=== PATIENT | female | born 1990 | race Caucasian/White ===

== ENCOUNTER → 2016-03-10 | Outpatient (CLI) | payer MEDICAID ==
[2016-03-10 12:49] LABS: Basophils % (A) 0 %; CH 29.2; Eosinophils # (A) 0.2 k/uL (0-0.7); Eosinophils % (A) 2 %; HCT 40.7 % (34.0-46.0); HDW 2.63; HGB 13.4 gm/dL (11.4-16.0); Luc # (Auto) 0.18; Luc % (Auto) 2; Lymphocytes # (A) 2.1 k/uL (1.0-4.8); Lymphocytes % (A) 23 %; MCH 28.4 pg (25.0-35.0); MCHC 32.9 g/dL (31.0-37.0); MCV 86.3 fL (80.0-100.0); Monocytes # (A) 0.3 k/uL (0-1.0); Monocytes % (A) 4 %; Neutrophils # (A) 6.3 k/uL (1.3-7.7); Neutrophils % (A) 69 %; RBC 4.71 m/uL (3.80-5.40); RDW 12.7 % (11.5-15.5); WBC 9.2 k/uL (3.8-10.6); WBC (Perox) 9.36
[2016-03-10 13:02] LABS: ALT 38 U/L (9-52); AST 18 U/L (14-36); Alkaline Phosphatase 94 U/L (38-126); Anion Gap 13 mmol/L; Blood Urea Nitrogen 8 mg/dL (7-17); Calcium 9.5 mg/dL (8.4-10.2); Carbon Dioxide 21 mmol/L (22-30); Chloride 107 mmol/L (98-107); Cholesterol 213 mg/dL (<200); Glucose 91 mg/dL (74-99); HDL Cholesterol 83 mg/dL (40-60); Non-African American GFR(MDRD) >60 (>60 ml/min/1.73 sqM); Potassium 4.5 mmol/L (3.5-5.1); Sodium 141 mmol/L (137-145); Total Bilirubin 0.4 mg/dL (0.2-1.3); Total Protein 7.3 g/dL (6.3-8.2); Triglycerides 131 mg/dL (<150)
[2016-03-10 14:05] LABS: Vitamin B12 >1000 pg/mL (239-931)
[2016-03-10 19:58] LABS: Hemoglobin A1C 5.2 % (4.2-6.1)
== END | disposition home or self-care (01) ==
LOC: LABMAIN 12:03
PROVIDERS: ATTEND Family Medicine
DX: E04.2 Nontoxic multinodular goiter (principal); E03.9 Hypothyroidism, unspecified; R73.01 Impaired fasting glucose; F90.0 Attention-deficit hyperactivity disorder, predominantly inattentive type
CPT/HCPCS: 36415; 80053; 80061; 82607; 83036; 84439; 84443; 85025

== ENCOUNTER → 2016-03-13 | Outpatient (CLI) | payer MEDICAID ==
--- NOTE | 2016-03-13 07:44 | US ---
EXAMINATION TYPE: US thyroid st tissue head/neck DATE OF EXAM: 03/13/2016 7:26 AM COMPARISON: March 22, 2015 CLINICAL HISTORY: E04.2 GOITER. Follow up thyroid nodules GLAND SIZE: Right Lobe: 4.7 x 1.6 x 1.8 cm Overall Parenchyma: heterogenous Left Lobe: 4.5 x 1.6 x 1.6 cm Overall Parenchyma: heterogeneous Isthmus Thickness: 0.4 cm NODULES RIGHT: # of nodules measured on right: 1 1. 1.0 X 0.5 x 0.7 cm hypoechoic solid nodule at the medial mid pole with well-defined margins; . This nodule is wider than tall and shows intranodular vascularity. Prior size: 0.9 x 0.5 x 0.9 cm LEFT: # of nodules measured on left: 1 1. 1.5 X 0.5 x 1.0 cm hypoechoic solid nodule at the mid pole with well-defined margins; . This no dule is wider than tall and shows intranodular vascularity. Prior size: 1.6 x 0.4 x 0.8 cm ISTHMUS: # of nodules measured in the isthmus: 1 1. 0.6 X 0.4 x 0.8 cm hypoechoic solid nodule at the mid pole with well-defined margins; . This no dule is wider than tall and shows intranodular vascularity. Prior size: 0.9 x 0.5 x 0.9 cm IMPRESSION: Heterogenous thyroid gland, nodules noted with little to no change from prior exam. Hyp oechoic areas noted inferior to bilateral thyroid glands, possible lymph nodes
== END | disposition home or self-care (01) ==
LOC: RADUSWWP 07:08
PROVIDERS: ATTEND Family Medicine
DX: E04.2 Nontoxic multinodular goiter (principal)
CPT/HCPCS: 76536

== ENCOUNTER 2016-10-25 10:15 | Day surgery (SDC) | payer MEDICAID ==
[2016-10-23 11:29] VITALS: BMI 34.5
[~2016-10-25 10:15] MED LIST: LACTATED RINGERS 1,000 ML IV SCH
[2016-10-25 10:58] VITALS: RESP 16; TEMP 98.9
[2016-10-25] MEDS ORDERED: PROPOFOL 10 MG/ML 20 ML VIAL IV ONE (11:07)
--- NOTE | 2016-10-25 11:15 | P.PCN ---
Date of Procedure: 10/25/16 Procedure(s) Performed: BRIEF HISTORY: Patient is a 26-year-old, pleasant, white female, scheduled for an upper endoscopy as a part of evaluation of chronic persistent nausea for the last several months duration. She also has GERD and has been on Prilosec 20 mg daily for 6 months. PROCEDURE PERFORMED: Esophagogastroduodenoscopy with biopsy. PREOPERATIVE DIAGNOSIS: GERD/chronic persistent nausea. IV sedation per anesthesia. PROCEDURE: After informed consent was obtained, the patient was brought into the endoscopy unit. IV sedation was administered by Anesthesia under continuous monitoring. Initially the Olympus GIF-140 video endoscope was inserted into the mouth. Esophagus intubated without any difficulty. It was gradually advanced into the stomach and duodenum and carefully examined. The bulb and the second part of the duodenum appeared normal. The scope at this time was withdrawn to the stomach, adequately insufflated with air, and upon careful examination, mucosa of the antrum, had mild gastritis and biopsies were done from this area. The body, cardia and the fundus appeared normal. The scope was then withdrawn into the esophagus. The GE junction was located at 40 cm from the incisors. The esophagus appeared normal. Biopsies were done from the distal esophagus. There were no erosions or ulcerations seen and the patient tolerated the procedure well. IMPRESSION: 1. Mild antral gastritis. 2. No evidence of esophagitis or peptic ulcer disease. RECOMMENDATIONS: The findings of this examination were discussed with the patient as well as a family. She was advised to continue with Prilosec 20 mg daily and follow antireflux measures. She will follow with the biopsy results.
[2016-10-25 11:39] VITALS: BP 123/88; PULSE 81
== END 2016-10-25 11:53 | disposition home or self-care (01) ==
LOC: ORWHC2ENDO 10:15
PROVIDERS: ATTEND Internal Medicine Gastroenterology
DX: K21.0 Gastro-esophageal reflux disease with esophagitis (principal); K29.50 Unspecified chronic gastritis without bleeding; Z79.899 Other long term (current) drug therapy; Z91.040 Latex allergy status; F39 Unspecified mood [affective] disorder; E07.9 Disorder of thyroid, unspecified
CPT/HCPCS: 81025; 88305; 88342; 43239; J2704

== ENCOUNTER → 2017-03-13 | Outpatient (CLI) | payer MEDICAID ==
[2017-03-13 08:59] LABS: Basophils # (A) 0.1 k/uL (0-0.2); Basophils % (A) 1 %; Eosinophils # (A) 0.2 k/uL (0-0.7); Eosinophils % (A) 2 %; HCT 40.3 % (34.0-46.0); HGB 13.1 gm/dL (11.4-16.0); Lymphocytes # (A) 2.8 k/uL (1.0-4.8); Lymphocytes % (A) 29 %; MCH 28.4 pg (25.0-35.0); MCHC 32.6 g/dL (31.0-37.0); MCV 87.3 fL (80.0-100.0); Mean Platelet Volume 6.6; Monocytes # (A) 0.3 k/uL (0-1.0); Monocytes % (A) 3 %; Neutrophils # (A) 6.3 k/uL (1.3-7.7); Neutrophils % (A) 64 %; Platelet Count 351 k/uL (150-450); RBC 4.61 m/uL (3.80-5.40); RDW 12.9 % (11.5-15.5); WBC 9.9 k/uL (3.8-10.6)
[2017-03-13 09:17] LABS: ALT 32 U/L (9-52); AST 16 U/L (14-36); Alkaline Phosphatase 80 U/L (38-126); Anion Gap 10 mmol/L; Blood Urea Nitrogen 10 mg/dL (7-17); Calcium 9.5 mg/dL (8.4-10.2); Carbon Dioxide 27 mmol/L (22-30); Chloride 103 mmol/L (98-107); Cholesterol 201 mg/dL (<200); Glucose 106 mg/dL (74-99); HDL Cholesterol 68 mg/dL (40-60); LDL Cholesterol,Calculated 95 mg/dL (0-99); Potassium 4.1 mmol/L (3.5-5.1); Sodium 140 mmol/L (137-145); Total Bilirubin 0.3 mg/dL (0.2-1.3); Triglycerides 189 mg/dL (<150)
[2017-03-13 09:34] LABS: T4, Free (Free Thyroxine) 0.76 ng/dL (0.78-2.19)
== END | disposition home or self-care (01) ==
LOC: LABWHC1 08:30
PROVIDERS: ATTEND Family Medicine
DX: Z01.419 Encounter for gynecological examination (general) (routine) without abnormal findings (principal); F90.0 Attention-deficit hyperactivity disorder, predominantly inattentive type; K83.9 Disease of biliary tract, unspecified; E03.9 Hypothyroidism, unspecified; Z13.220 Encounter for screening for lipoid disorders
CPT/HCPCS: 36415; 80053; 80061; 82607; 84439; 84443; 85025

== ENCOUNTER → 2017-06-11 | Outpatient (CLI) | payer MEDICAID ==
[2017-06-11 09:05] LABS: Basophils % (A) 0 %; Eosinophils # (A) 0.2 k/uL (0-0.7); Eosinophils % (A) 3 %; HCT 40.8 % (34.0-46.0); HGB 13.1 gm/dL (11.4-16.0); Lymphocytes # (A) 2.7 k/uL (1.0-4.8); Lymphocytes % (A) 33 %; MCH 27.7 pg (25.0-35.0); MCHC 32.1 g/dL (31.0-37.0); MCV 86.1 fL (80.0-100.0); Mean Platelet Volume 7.2; Monocytes # (A) 0.4 k/uL (0-1.0); Monocytes % (A) 4 %; Neutrophils # (A) 4.7 k/uL (1.3-7.7); Neutrophils % (A) 58 %; Platelet Count 336 k/uL (150-450); RBC 4.74 m/uL (3.80-5.40); RDW 13.1 % (11.5-15.5); WBC 8.2 k/uL (3.8-10.6)
[2017-06-11 09:20] LABS: ALT 26 U/L (9-52); AST 16 U/L (14-36); Albumin 3.9 g/dL (3.5-5.0); Alkaline Phosphatase 83 U/L (38-126); Anion Gap 12 mmol/L; Blood Urea Nitrogen 8 mg/dL (7-17); Calcium 9.4 mg/dL (8.4-10.2); Carbon Dioxide 26 mmol/L (22-30); Chloride 105 mmol/L (98-107); Glucose 105 mg/dL (74-99); Potassium 4.6 mmol/L (3.5-5.1); Sodium 143 mmol/L (137-145); Total Bilirubin 0.3 mg/dL (0.2-1.3); Total Protein 6.8 g/dL (6.3-8.2); Triglycerides 78 mg/dL (<150)
[2017-06-11 09:34] LABS: T4, Free (Free Thyroxine) 1.19 ng/dL (0.78-2.19)
[2017-06-11 19:28] LABS: Hemoglobin A1C 5.2 % (4.0-6.0)
== END | disposition home or self-care (01) ==
LOC: LABWHC1 08:33
PROVIDERS: ATTEND Family Medicine
DX: E78.1 Pure hyperglyceridemia (principal); E03.9 Hypothyroidism, unspecified; R73.01 Impaired fasting glucose; R19.7 Diarrhea, unspecified; F90.0 Attention-deficit hyperactivity disorder, predominantly inattentive type
CPT/HCPCS: 36415; 80053; 83036; 84439; 84443; 84478; 84480; 85025

== ENCOUNTER → 2017-11-02 | Outpatient (CLI) | payer MEDICAID ==
--- NOTE | 2017-11-04 12:43 | US ---
EXAMINATION TYPE: US thyroid st tissue head/neck DATE OF EXAM: 11/02/2017 COMPARISON: NONE CLINICAL HISTORY: E04.1 Thyroid nodule. GLAND SIZE: Right Lobe: 5.2 x 1.5 x 1.8 cm Overall Parenchyma: Diffusely heterogeneous Left Lobe: 4.3 x 1.4 x 1.6 cm Overall Parenchyma: Diffusely heterogeneous Isthmus Thickness: 0.5 cm NODULES RIGHT: # of nodules measured on right: 0 LEFT: # of nodules measured on left: 0 ISTHMUS: # of nodules measured in the isthmus: 0 Diffusely heterogeneous lobes bilaterally. Within the right neck, inferior to the thyroid, there is a hypoechoic area visualized measuring 1.3 x 0.6 x 0.9 cm. There is some vascularity visualized. Withi n the left neck, inferior to the thyroid, measuring 1.2 x 1.0 x 0.9 cm, possible lymph node. IMPRESSION: 1. Thyromegaly without discrete nodules. Thyroid lobes are heterogenous. 2. Right neck adenopathy.
== END | disposition home or self-care (01) ==
LOC: RADUSWWP 15:37
PROVIDERS: ATTEND Family Medicine
DX: E01.0 Iodine-deficiency related diffuse (endemic) goiter (principal); R59.0 Localized enlarged lymph nodes
CPT/HCPCS: 76536

== ENCOUNTER → 2018-01-07 | Outpatient (CLI) | payer MEDICAID ==
[2018-01-07 12:54] LABS: Basophils % (A) 0 %; Eosinophils # (A) 0.2 k/uL (0-0.7); Eosinophils % (A) 2 %; HGB 13.1 gm/dL (11.4-16.0); Lymphocytes # (A) 1.9 k/uL (1.0-4.8); Lymphocytes % (A) 24 %; MCH 28.8 pg (25.0-35.0); MCHC 32.8 g/dL (31.0-37.0); MCV 87.8 fL (80.0-100.0); Mean Platelet Volume 6.6; Monocytes # (A) 0.3 k/uL (0-1.0); Monocytes % (A) 3 %; Neutrophils # (A) 5.4 k/uL (1.3-7.7); Neutrophils % (A) 69 %; Platelet Count 330 k/uL (150-450); RBC 4.56 m/uL (3.80-5.40); RDW 12.7 % (11.5-15.5); WBC 7.8 k/uL (3.8-10.6)
[2018-01-07 19:09] LABS: Albumin 4.3 g/dL (3.80-4.90); Albumin/Globulin Ratio 2.05 (1.20-2.10); Anion Gap 6.6 mmol/L (4.00-12.00); Calcium 9.2 mg/dL (8.7-10.3); Carbon Dioxide 25.4 mmol/L (21.6-31.8); Globulin 2.1 g/dL (2.1-3.7); Potassium 4.3 mmol/L (3.5-5.5); Total Bilirubin 0.3 mg/dL (0.2-1.2); Total Protein 6.4 g/dL (6.2-8.2)
[2018-01-07 19:17] LABS: HCG,Quantitative Serum 201.3 mIU/mL; T4, Free (Free Thyroxine) 1.2 ng/dL (0.80-1.80)
[2018-01-07 19:53] LABS: HIV 1 AB Non-Reactive (Non-Reactive); HIV AB P24 Non-Reactive (Non-Reactive); HIV P24 AG Non-Reactive (Non-Reactive)
[2018-01-07 23:36] LABS: Hemoglobin A1C 5.2 % (4.0-6.0)
== END | disposition home or self-care (01) ==
LOC: LABWHC1 12:01
PROVIDERS: ATTEND Family Medicine
DX: O00.01 Abdominal pregnancy with intrauterine pregnancy (principal); E03.9 Hypothyroidism, unspecified
CPT/HCPCS: 36415; 80053; 83036; 84439; 84443; 84702; 85025; 86735; 86762; 86765; 86900; 86901; 87086; 87340; 87390

== ENCOUNTER → 2018-02-08 | Outpatient (CLI) | payer MEDICAID | END | disposition home or self-care (01) | LOC: LABWHC1 09:01 | PROVIDERS: ATTEND Obstetrics & Gynecology Obstetrics | DX: O20.0 Threatened abortion (principal) | CPT/HCPCS: 36415; 84702 ==

== ENCOUNTER → 2018-02-13 | Outpatient (CLI) | payer MEDICAID ==
[2018-02-13 09:53] LABS: Basophils % (A) 0 %; Eosinophils # (A) 0.2 k/uL (0-0.7); Eosinophils % (A) 3 %; HCT 38.6 % (34.0-46.0); HGB 12.8 gm/dL (11.4-16.0); Lymphocytes # (A) 2.5 k/uL (1.0-4.8); Lymphocytes % (A) 35 %; MCH 29.2 pg (25.0-35.0); MCV 88.3 fL (80.0-100.0); Monocytes # (A) 0.3 k/uL (0-1.0); Monocytes % (A) 4 %; Neutrophils % (A) 56 %; Platelet Count 289 k/uL (150-450); RBC 4.37 m/uL (3.80-5.40); RDW 13.1 % (11.5-15.5); WBC 7.1 k/uL (3.8-10.6)
== END | disposition home or self-care (01) ==
LOC: LABWHC1 08:31
PROVIDERS: ATTEND Obstetrics & Gynecology Obstetrics
DX: Z01.812 Encounter for preprocedural laboratory examination (principal); O02.0 Blighted ovum and nonhydatidiform mole; O08.9 Unspecified complication following an ectopic and molar pregnancy
CPT/HCPCS: 36415; 85025

== ENCOUNTER 2018-02-14 11:26 | Day surgery (SDC) | payer MEDICAID ==
[2018-02-13 09:07] VITALS: BMI 36.0
[~2018-02-14 11:26] MED LIST changes: +DEXAMETHASONE SOD PHOSPHATE 10 MG/ML 1 ML VIAL IV ONE; +HYDROmorphone 0.5 MG/0.5 ML SYRINGE IVP PRN; +LIDOCAINE 1% 20 ML VIAL (10MG/ML) FOR IV START INTRADERMA PRN; +ONDANSETRON 4 MG/2 ML VIAL IVP ONE; +SCOPOLAMINE 1.5MG/72HR PATCH TRANSDERM ONE
[2018-02-14] MEDS ORDERED: LACTATED RINGERS 1,000 ML IV ONE ×2 (11:56→14:11)
[2018-02-14] MEDS ORDERED: SUCCINYLCHOLINE CHLORIDE 100 MG/5 ML SYR IV ONE (12:55)
[2018-02-14] MEDS ORDERED: LIDOCAINE 1% INJ 10MG/ML (20 ML MDV) ONE (12:55)
[2018-02-14] MEDS ORDERED: PROPOFOL 10 MG/ML 20 ML VIAL IV ONE (12:55)
[2018-02-14] MEDS ORDERED: KETOROLAC 30 MG/ML 1 ML VIAL ONE (12:55)
[2018-02-14] MEDS ORDERED: fentaNYL (PF) 50 MCG/ML 2 ML AMP ONE (12:55)
[2018-02-14] MEDS ORDERED: MIDAZOLAM 2 MG/2 ML VIAL ONE (12:55)
--- NOTE | 2018-02-14 13:15 | P.OP ---
Date of Procedure: 02/14/18 Preoperative Diagnosis: Blighted ovum Postoperative Diagnosis: Same Procedure(s) Performed: Suction D&C Anesthesia: GETA Surgeon: Kamryn Garcia Estimated Blood Loss (ml): 5 IV fluids (ml): 400 Urine output (ml): 100 Pathology: other (Uterine contents) Condition: stable Disposition: PACU Indications for Procedure: Blighted ovum Operative Findings: Moderate amount of products of conception Description of Procedure: Patient was seen in the preoperative area and procedure was reviewed once again with her QUESTIONS were answered. Patient was taken to the operating suite where general anesthesia was obtained without difficulty by the anesthesia department. She was then prepped and draped in normal sterile fashion in the dorsal lithotomy position a weighted speculum posterior vaginal vault D'Corky the cervix incision was grasped with single-tooth tenaculum prior to this a latex free catheter was used to drain the bladder of approximately 100 mL of clear yellow urine. The cervix was then dilated to 18-Kinyarwanda and a 8 mm curved suction curet was placed through the cervix and toward the uterine cavity once the pressure was in the green the uterus is evacuated of products of conception. Afterwards gentle curettage was performed and a gritty texture was noted. Patient tolerated procedure well all counts were correct 2 she was taken the recovery room awake and in stable condition.
[2018-02-14 13:27] VITALS: TEMP 97.2
[2018-02-14 14:19] VITALS: RESP 16
[2018-02-14 14:48] VITALS: BP 111/73; PULSE 79
== END 2018-02-14 14:56 | disposition home or self-care (01) ==
LOC: OR 11:26
PROVIDERS: ATTEND Obstetrics & Gynecology Obstetrics
DX: O02.0 Blighted ovum and nonhydatidiform mole (principal); K21.9 Gastro-esophageal reflux disease without esophagitis; E04.9 Nontoxic goiter, unspecified; E03.9 Hypothyroidism, unspecified; Z79.890 Hormone replacement therapy; Z79.899 Other long term (current) drug therapy; Z91.040 Latex allergy status
CPT/HCPCS: 86900; 86901; 88305; 86850; 59820; J2250; J1100; J2405; J2001; J3010; J1885; J0330; J2704

== ENCOUNTER → 2018-05-21 | Outpatient (CLI) | payer MEDICAID | LOC: LABWHC1 06:29 | PROVIDERS: ATTEND Obstetrics & Gynecology Obstetrics | DX: O20.0 Threatened abortion (principal) | CPT/HCPCS: 36415; 84702 ==

== ENCOUNTER → 2018-06-18 | Outpatient (CLI) | payer MEDICAID | END | disposition home or self-care (01) | LOC: LABWHC1 13:57 | PROVIDERS: ATTEND Obstetrics & Gynecology Obstetrics | DX: Z34.90 Encounter for supervision of normal pregnancy, unspecified, unspecified trimester (principal) | CPT/HCPCS: 36415; 84144; 84702 ==

== ENCOUNTER → 2018-06-18 | Outpatient (CLI) | payer MEDICAID ==
[2018-06-18 17:35] LABS: HCT 37.2 % (34.0-46.0); HGB 12.1 gm/dL (11.4-16.0); MCH 28.4 pg (25.0-35.0); MCHC 32.5 g/dL (31.0-37.0); MCV 87.2 fL (80.0-100.0); Platelet Count 319 k/uL (150-450); RBC 4.27 m/uL (3.80-5.40); RDW 13.1 % (11.5-15.5); WBC 10.5 k/uL (3.8-10.6)
== END | disposition home or self-care (01) ==
LOC: LABWHC1 17:10
PROVIDERS: ATTEND Obstetrics & Gynecology Obstetrics
DX: O00.109 Unspecified tubal pregnancy without intrauterine pregnancy (principal); Z3A.00 Weeks of gestation of pregnancy not specified
CPT/HCPCS: 36415; 82565; 84450; 84520; 85027

== ENCOUNTER → 2018-06-18 | Outpatient (CLI) | payer MEDICAID ==
[~2018-06-18] MED LIST changes: -DEXAMETHASONE SOD PHOSPHATE 10 MG/ML 1 ML VIAL IV ONE; -HYDROmorphone 0.5 MG/0.5 ML SYRINGE IVP PRN; -LACTATED RINGERS 1,000 ML IV SCH; -LIDOCAINE 1% 20 ML VIAL (10MG/ML) FOR IV START INTRADERMA PRN; +METHOTREXATE SODIUM (PF) 25 MG/ML 2 ML VIAL IM ONE; -ONDANSETRON 4 MG/2 ML VIAL IVP ONE; -SCOPOLAMINE 1.5MG/72HR PATCH TRANSDERM ONE
[2018-06-18 17:43] VITALS: BP 145/89; PULSE 99; RESP 16
== END | disposition home or self-care (01) ==
LOC: PEDOP 17:22
PROVIDERS: ATTEND Obstetrics & Gynecology Obstetrics
DX: O00.90 Unspecified ectopic pregnancy without intrauterine pregnancy (principal); Z3A.00 Weeks of gestation of pregnancy not specified
CPT/HCPCS: 96372; J9260

== ENCOUNTER → 2018-06-21 | Outpatient (CLI) | payer MEDICAID | LOC: LABWHC1 06:32 | PROVIDERS: ATTEND Obstetrics & Gynecology Obstetrics | DX: O00.109 Unspecified tubal pregnancy without intrauterine pregnancy (principal); Z3A.00 Weeks of gestation of pregnancy not specified | CPT/HCPCS: 36415; 84702 ==

== ENCOUNTER → 2018-06-24 | Outpatient (CLI) | payer MEDICAID ==
[2018-06-24 08:38] LABS: HCT 38.7 % (34.0-46.0); HGB 12.5 gm/dL (11.4-16.0); MCH 28.3 pg (25.0-35.0); MCHC 32.2 g/dL (31.0-37.0); MCV 87.9 fL (80.0-100.0); Mean Platelet Volume 6.8; Platelet Count 319 k/uL (150-450); RBC 4.41 m/uL (3.80-5.40); RDW 13.5 % (11.5-15.5); WBC 7.6 k/uL (3.8-10.6)
[2018-06-24 08:57] LABS: AST 17 U/L (14-36); Blood Urea Nitrogen 6 mg/dL (7-17)
[2018-06-24 09:14] LABS: HCG,Quantitative Serum 12609.4 mIU/mL
== END | disposition home or self-care (01) ==
LOC: LABWHC1 07:49
PROVIDERS: ATTEND Obstetrics & Gynecology Obstetrics
DX: O00.109 Unspecified tubal pregnancy without intrauterine pregnancy (principal)
CPT/HCPCS: 36415; 82565; 84450; 84520; 84702; 85027

== ENCOUNTER → 2018-07-02 | Outpatient (CLI) | payer MEDICAID | END | disposition home or self-care (01) | LOC: LABWHC1 06:31 | PROVIDERS: ATTEND Obstetrics & Gynecology Obstetrics | DX: O00.109 Unspecified tubal pregnancy without intrauterine pregnancy (principal) | CPT/HCPCS: 36415; 84702 ==

== ENCOUNTER → 2018-07-09 | Outpatient (CLI) | payer MEDICAID | END | disposition home or self-care (01) | LOC: LABWHC1 08:32 | PROVIDERS: ATTEND Obstetrics & Gynecology Obstetrics | DX: O00.90 Unspecified ectopic pregnancy without intrauterine pregnancy (principal); Z3A.00 Weeks of gestation of pregnancy not specified | CPT/HCPCS: 36415; 84702 ==

== ENCOUNTER → 2018-07-15 | Outpatient (CLI) | payer MEDICAID | END | disposition home or self-care (01) | LOC: LABWHC1 14:24 | PROVIDERS: ATTEND Obstetrics & Gynecology Obstetrics | DX: O00.109 Unspecified tubal pregnancy without intrauterine pregnancy (principal) | CPT/HCPCS: 36415; 84702 ==

== ENCOUNTER → 2018-07-29 | Outpatient (CLI) | payer MEDICAID | END | disposition home or self-care (01) | LOC: LABWHC1 08:03 | PROVIDERS: ATTEND Obstetrics & Gynecology Obstetrics | DX: O00.109 Unspecified tubal pregnancy without intrauterine pregnancy (principal); Z3A.00 Weeks of gestation of pregnancy not specified | CPT/HCPCS: 36415; 84702 ==

== ENCOUNTER → 2018-08-12 | Outpatient (CLI) | payer MEDICAID | END | disposition home or self-care (01) | LOC: LABWHC1 07:59 | PROVIDERS: ATTEND Obstetrics & Gynecology Obstetrics | DX: O00.109 Unspecified tubal pregnancy without intrauterine pregnancy (principal); Z3A.00 Weeks of gestation of pregnancy not specified | CPT/HCPCS: 36415; 84702 ==

== ENCOUNTER → 2018-08-26 | Outpatient (CLI) | payer MEDICAID | END | disposition home or self-care (01) | LOC: LABWHC1 09:07 | PROVIDERS: ATTEND Obstetrics & Gynecology Obstetrics | DX: O00.109 Unspecified tubal pregnancy without intrauterine pregnancy (principal) | CPT/HCPCS: 36415; 84702 ==

== ENCOUNTER → 2018-10-04 | Outpatient (CLI) | payer MEDICAID ==
--- NOTE | 2018-10-04 18:19 | FL ---
EXAMINATION TYPE: FL hysterosalpingography DATE OF EXAM: 10/04/2018 Comparison: None Clinical History: 28-year-old female N96 Hx of miscarriage and prior left-sided ectopic treated medic ally. Total fluoroscopy time: 34 seconds. Total images: 13. Findings: Real Estate Sales Associate image demonstrates no abnormality. No other foreign bodies are seen within the pelvis. The patient was consented and utilizing standard sterile technique, the cervical os was cannulated. F ollowing the injection of approximately 5 mL Isovue-300 contrast material, there is prompt filling of the uterine cavity. Uterus has normal morphology. Contrast is seen progressing to the proximal fallopian tubes. Subsequent passage of contrast across t he fallopian tubes and spillage first from the left fallopian tube followed by the right fallopian tu be. The balloon was deflated and contrast was allowed to fill the entire uterine cavity. No uterine anoma ly is identified. Impression: Normal morphology of the uterine cavity with patent bilateral fallopian tubes. Spillage was first see n on the left.
== END | disposition home or self-care (01) ==
LOC: RADUSWWP 13:18
PROVIDERS: ATTEND Obstetrics & Gynecology Obstetrics
DX: N96 Recurrent pregnancy loss (principal)
CPT/HCPCS: 58340; 74740; Q9967

== ENCOUNTER → 2018-10-14 | Outpatient (CLI) | payer MEDICAID ==
--- NOTE | 2018-10-14 13:00 | US ---
EXAMINATION TYPE: US thyroid st tissue head/neck DATE OF EXAM: 10/14/2018 COMPARISON: Thyroid ultrasound November 02, 2017 CLINICAL HISTORY: E04.2 NONTOXIC MULTINODULAR GOITER. Patient is on thyroid meds. GLAND SIZE: And older studies Right Lobe: 5.2 x 1.7 x 1.9 cm Overall Parenchyma: heterogenous Left Lobe: 4.6 x 1.7 x 1.8 cm Overall Parenchyma: heterogeneous Isthmus Thickness: 0.8 cm NODULES RIGHT: # of nodules measured on right: 0 LEFT: # of nodules measured on left: 0 ISTHMUS: # of nodules measured in the isthmus: 0 Bilateral neck scanned, multiple lymph nodes seen. Largest measured on each side. Right- inferior t o thyroid lobe = 1.2 x 1.1 x 0.6 cm. Left- inferior to thyroid lobe = 1.6 x 1.2 x 0.9 cm. Bilateral lobes appear hypervascular with no prominent masses or lesions seen. Right lobe appears en larged in size. Markedly heterogeneous normal-sized thyroid redemonstrated without new greater than 1 cm nodules. Sub centimeter suspected benign lymph nodes are incidentally marked bilaterally. IMPRESSION: As above, stable markedly heterogeneous thyroid without new suspicious focal nodules.
== END | disposition home or self-care (01) ==
LOC: RADUSWWP 10:43
PROVIDERS: ATTEND Family Medicine
DX: E04.2 Nontoxic multinodular goiter (principal)
CPT/HCPCS: 76536

== ENCOUNTER → 2018-10-23 | Outpatient (CLI) | payer MEDICAID ==
[2018-10-23 11:25] LABS: Basophils % (A) 1 %; Eosinophils # (A) 0.3 k/uL (0-0.7); Eosinophils % (A) 3 %; HCT 40.7 % (34.0-46.0); HGB 13.6 gm/dL (11.4-16.0); Lymphocytes # (A) 2.5 k/uL (1.0-4.8); Lymphocytes % (A) 28 %; MCH 28.7 pg (25.0-35.0); MCHC 33.5 g/dL (31.0-37.0); MCV 85.7 fL (80.0-100.0); Monocytes # (A) 0.3 k/uL (0-1.0); Monocytes % (A) 4 %; Neutrophils # (A) 5.6 k/uL (1.3-7.7); Neutrophils % (A) 63 %; Platelet Count 334 k/uL (150-450); RBC 4.75 m/uL (3.80-5.40); RDW 13.1 % (11.5-15.5); WBC 8.9 k/uL (3.8-10.6)
[2018-10-23 13:46] LABS: Erythrocyte Sedimentation Rate 18 mm/hr (0-20)
[2018-10-23 16:49] LABS: African American GFR (CKD) 134.7 (60.0-200.0); Albumin 4.6 g/dL (3.80-4.90); Albumin/Globulin Ratio 2.09 (1.60-3.17); Anion Gap 8.3 mmol/L (4.00-12.00); BUN/Creat Ratio 12.86 Ratio (12.00-20.00); C Reactive Protein 1.7 mg/dL (0.0-0.8); Calcium 9.5 mg/dL (8.7-10.3); Carbon Dioxide 26.7 mmol/L (21.6-31.8); Chol/HDL Ratio 3.55; Globulin 2.2 g/dL (1.6-3.3); LDL Cholesterol,Calculated 113.2 mg/dL (0.0-131.0); Potassium 4.1 mmol/L (3.5-5.5); Total Bilirubin 0.4 mg/dL (0.3-1.2); Total Protein 6.8 g/dL (6.2-8.2); VLDL Calculation 16.8 mg/dL (5.00-40.00)
[2018-10-23 16:56] LABS: HCG,Quantitative Serum 5.7 mIU/mL; T4, Free (Free Thyroxine) 1.4 ng/dL (0.80-1.80)
[2018-10-23 17:23] LABS: Procalcitonin 0.02 ng/mL (0.02-0.09)
[2018-10-23 17:31] LABS: Hemoglobin A1C 5.5 % (4.0-6.0)
[2018-10-23 18:17] LABS: Cardiolipin Ab IgG Interp NEGATIVE (NEGATIVE); Cardiolipin Ab IgM Interp NEGATIVE (NEGATIVE); Cardiolipin IgA Antibody <0.5 U/mL; Cardiolipin IgM Antibody 0.9 U/mL; HIV 1 AB Non-Reactive (Non-Reactive); HIV AB P24 Non-Reactive (Non-Reactive); HIV P24 AG Non-Reactive (Non-Reactive)
[2018-10-23 19:25] LABS: EBV-EA (IgG) >8.0 AI; EBV-EBNA(IgG) >8.0 AI; EBV-VCA (IgG) 4.3 AI; EBV-VCA (IgM) <0.2 AI
[2018-10-24 11:55] LABS: APTT 41 Sec(s) (<43); DRVVT 1:1 Mix 44 Sec(s) (<44); Dilute Russell Viper Venom 51 Sec(s) (<44)
[2018-10-24 14:17] LABS: C. trachomatis,PCR Negative (Neg,Equiv); Chlamydia trachomatis Source Urine; N. gonorrhoeae,PCR Negative (Neg,Equiv); Neisseria Source Urine
== END | disposition home or self-care (01) ==
LOC: LABWHC1 09:49
PROVIDERS: ATTEND Family Medicine
DX: O03.9 Complete or unspecified spontaneous abortion without complication (principal); I88.1 Chronic lymphadenitis, except mesenteric; E03.9 Hypothyroidism, unspecified; R73.01 Impaired fasting glucose
CPT/HCPCS: 36415; 80053; 80061; 83036; 84145; 84439; 84443; 84702; 85025; 85613; 85652; 85730; 86038; 86140; 86147; 86308; 86663; 86664; 86665; 87390; 87491; 87591

== ENCOUNTER → 2018-11-02 | Outpatient (CLI) | payer MEDICAID ==
--- NOTE | 2018-11-03 08:09 | CT ---
EXAMINATION TYPE: CT soft tissue neck w con DATE OF EXAM: 11/02/2018 COMPARISON: None HISTORY: Adenitis CT DLP: 504.20 mGycm CONTRAST: Patient injected with 50 mL of Isovue 300. TECHNIQUE: Axial images at 3 mm thick sections. Reconstructed images in the coronal plane and sagitt al plane are reviewed. FINDINGS: Limited CT sections are obtained the lung apices. The lung apices appear clear. CT neck: The torus tubarius and fossa of Rosenmuller are normal. Pulpit Operator spaces are normal. Para nasal sinuses and mastoid air cells are clear. Parotid glands appear normal and symmetrical. Submandibular glands, are normal. Parapharyngeal spac es are normal. No suspicious adenopathy is evident. Few small submental lymph nodes are present. Cou ple small submandibular lymph nodes are present. The largest lymph node is in the left submandibular region measuring 0.7 cm transverse. The hypopharynx appears within normal limits. Vocal cord level appear symmetrical. Thyroid as visualized is normal. Osseous structures are normal. IMPRESSIONS: 1. Normal soft tissue neck CT.
--- NOTE | 2018-11-03 08:14 | CT ---
EXAMINATION TYPE: CT abdomen pelvis w con DATE OF EXAM: 11/02/2018 COMPARISON: None INDICATION: Adenitis DLP: 1932.30 mGycm, Automated exposure control for dose reduction was used. CONTRAST: 50 mL of Isovue 300. Study performed with Oral Contrast TECHNIQUE: Axial images were obtained from above the diaphragm to the pubic rami in the axial plane a t 5 mm thick sections. Reconstructed images are reviewed on the computer in the coronal plane. FINDINGS: Limited CT sections are obtained the lung bases. The lung bases are clear. CT ABDOMEN: Liver: Normal Spleen: Normal Pancreas: Normal Adrenal glands: The adrenal glands are normal. Gallbladder: Normal Kidneys: No masses are evident. No hydronephrosis is present. No cysts are present. Delayed images were obtained through the kidneys, which remain unremarkable. Aorta: Normal Inferior vena cava: Normal. CT PELVIS: Inguinal adenopathy is present bilaterally measuring 1.2 cm on the left 1.1 cm on the righ t. No suspicious iliac chain or obturator canal adenopathy is evident. No suspicious periaortic or re trocaval adenopathy is evident. A few small scattered mesenteric lymph nodes are present. Loops of bowel within the abdomen and pelvis are normal. There are loops of bowel which are incom pletely distended or lack oral contrast limiting their evaluation. Appendix: The appendix is not well visualized. No suspicious inflammatory changes or dilated tubular structures are evident. The right lower quadrant. Urinary bladder: Normal. Genitourinary structures: Uterus is unremarkable. Adnexal regions are clear. No free fluid is within the pelvis Osseous structures: No suspicious lytic or sclerotic lesions. IMPRESSIONS: 1. Couple of prominent inguinal lymph nodes. Suspicious adenopathy is not otherwise identified withi n the abdomen and pelvis. 2. Remainder of the CT abdomen pelvis appears unremarkable as visualized.
== END | disposition home or self-care (01) ==
LOC: RADCTMAIN 08:58
PROVIDERS: ATTEND Family Medicine
DX: I88.1 Chronic lymphadenitis, except mesenteric (principal)
CPT/HCPCS: 70491; 74177; Q9967

== ENCOUNTER → 2018-12-17 | Outpatient (CLI) | payer MEDICAID | END | disposition home or self-care (01) | LOC: LABWHC1 10:32 | PROVIDERS: ATTEND Obstetrics & Gynecology Obstetrics | DX: N92.5 Other specified irregular menstruation (principal) | CPT/HCPCS: 36415; 84144; 84702 ==

== ENCOUNTER → 2018-12-19 | Outpatient (CLI) | payer MEDICAID | END | disposition home or self-care (01) | LOC: LABWHC1 06:31 | PROVIDERS: ATTEND Obstetrics & Gynecology Obstetrics | DX: N92.5 Other specified irregular menstruation (principal) | CPT/HCPCS: 36415; 84702 ==

== ENCOUNTER 2018-12-21 18:12 | Emergency (ER) | payer MEDICAID ==
[2018-12-21 18:19] VITALS: RESP 18; TEMP 98.8
[2018-12-21] MEDS ORDERED: METOCLOPRAMIDE 5 MG/ML 2 ML VIAL IVP STA (18:34)
[2018-12-21] MEDS ORDERED: diphenhydrAMINE 50 MG/ML 1 ML VIAL IVP STA (18:34)
[2018-12-21] MEDS ORDERED: SODIUM CHLORIDE 0.9% 1,000 ML IV ONE (18:34)
--- NOTE | 2018-12-21 18:41 | ED ---
Head Injury HPI - General Chief complaint: Head Injury Stated complaint: head injury/headache Time Seen by Provider: 12/21/18 18:21 Source: patient Mode of arrival: ambulatory Limitations: no limitations - History of Present Illness Initial comments: 28-year-old female patient presents to the emergency department today for evaluation of headache. Patient states that approximately 8-9 days ago she struck the right christianity on her headboard. Patient states the next day she developed a headache to the area. Patient states the pain is radiating down int o her jaw. States that she always has a pressure type pain to the region and then occasionally she'll have periods of more intense pain that radiates to her right periorbital region. She denies any blurred or double vision. States she has been trying Tylenol without relief. States she did see her primary care physician who evaluated her for temporal arteritis but states the lab tests were negative. Patient states that she has been having intense nausea with this. 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 Patient denies any recent rash, fever, chills, shortness breath, chest pain, abdominal pain, diarrhea, constipation, back pain, numbness, tingling, dizziness, weakness, hematuria, dysuria, urinary urgency, urinary frequency, or any other complaints. - Related Data Home Medications Medication Instructions Recorded Confirmed Levothyroxine Sodium 112 mcg PO QAM 02/13/18 02/13/18 Pnv No.95/Ferrous Fum/Folic AC 1 each PO DAILY 02/13/18 02/13/18 [ Multivitamin Tablet] Ranitidine HCl [Zantac] 150 mg PO DAILY PRN 02/13/18 02/13/18 Previous Rx's Medication Instructions Recorded Cyclobenzaprine [Flexeril] 10 mg PO TID #15 tab 12/21/18 Allergies/Adverse reactions: Allergies Allergy/AdvReac Type Severity Reaction Status Date / Time latex Allergy Rash/Hives Verified 02/13/18 08:56 Review of Systems ROS Statement: Those systems with pertinent positive or pertinent negative responses have been documented in the HPI. ROS Other: All systems not noted in ROS Statement are negative. Past Medical History Past Medical History: GERD/Reflux, Thyroid Disorder Additional Past Medical History / Comment(s): gastitis History of Any Multi-Drug Resistant Organisms: None Reported Past Surgical History: No Surgical Hx Reported Additional Past Surgical History / Comment(s): WISDOM TEETH -EXTRACTIONS Past Anesthesia/Blood Transfusion Reactions: No Reported Reaction Past Psychological History: ADD/ADHD, Anxiety Past Alcohol Use History: Occasional - Past Family History Mother Family Medical History: Deep Vein Thrombosis (DVT) General Exam Limitations: no limitations General appearance: alert, in no apparent distress, other (This is a well-developed, well-nourished adult female patient in no acute distress. Vital signs upon presentation are temperature 98.8F, pulse 116, respirations 18, blood pressure 132/60, pulse ox 98% on room air.) Head exam: Present: other (Tenderness over the right temporal region.) Eye exam: Present: normal appearance, PERRL, EOMI. Absent: scleral icterus, conjunctival injection, periorbital swelling ENT exam: Present: normal exam, normal oropharynx, mucous membranes moist, TM's normal bilaterally Respiratory exam: Present: normal lung sounds bilaterally. Absent: respiratory distress, wheezes, rales, rhonchi, stridor Cardiovascular Exam: Present: regular rate, normal rhythm, normal heart sounds. Absent: systolic murmur, diastolic murmur, rubs, gallop, clicks GI/Abdominal exam: Present: soft, normal bowel sounds. Absent: distended, tenderness, guarding, rebound, rigid Neurological exam: Present: alert, oriented X3, CN II-XII intact, other (Strength in all 4 extremities is 5/5.) Psychiatric exam: Present: normal affect, normal mood Skin exam: Present: warm, dry, intact, normal color. Absent: rash Course Vital Signs 12/21/18 12/21/18 18:15 19:46 Temperature 98.8 F Pulse Rate 116 H 84 Respiratory 18 18 Rate Blood Pressure 132/60 116/59 O2 Sat by Pulse 98 99 Oximetry Medical Decision Making - Medical Decision Making 28-year-old female patient presents to the emergency department today for evaluation of right sided headache. Patient did sustain a head injury approximately 8 days ago. Physical examination did reveal tenderness over the right TMJ region. Neurologically patient is intact with no focal deficits. CT brain was obtained and showed no acute abnormalities. Patient was given IV fluids and medication here in the emergency department. She does report mild improvement of symptoms. Note that computed tomography scan is negative we will give Toradol and a muscle relaxer for possible TMJ disorder. I did discuss findings results with the patient. She'll be discharged with this and follow up with her primary care physician for recheck in 1-2 days. Return parameters were discussed in detail. She verbalizes understanding and agrees with this plan. - Radiology Data Radiology results: report reviewed, image reviewed CT brain without contrast was obtained. Report was reviewed in its entirety. Impression by Dr. Miranda shows normal unenhanced head computed tomography scan. Disposition Clinical Impression: Headache, Head injury Disposition: HOME SELF-CARE Condition: Good Instructions (If sedation given, give patient instructions): Temporomandibular Disorder (ED), Acute Headache (ED) Additional Instructions: Take medications as directed. Consider getting a mouth guard. Follow up through primary care physician for recheck in 1-2 days. Return to the emergency department immediately for any new, worsening, or concerning symptoms. Prescriptions: Cyclobenzaprine [Flexeril] 10 mg PO TID #15 tab Is patient prescribed a controlled substance at d/c from ED?: No Referrals: Salena Butterfield MD [Primary Care Provider] - 1-2 days Time of Disposition: 19:31
--- NOTE | 2018-12-21 19:07 | CT ---
EXAMINATION TYPE: CT brain wo con DATE OF EXAM: 12/21/2018 COMPARISON: None HISTORY: Right temporal injury 8 days ago. Pain and pressure since. CT DLP: 1068.4 mGycm. Automated Exposure Control for Dose Reduction was Utilized. TECHNIQUE: CT scan of the head is performed without contrast. FINDINGS: Ventricles have normal size. There is no mass effect nor midline shift. There is no sign of intracranial hemorrhage. The calvarium is intact. IMPRESSION: Normal unenhanced head CT scan.
[2018-12-21] MEDS ORDERED: CYCLOBENZAPRINE 10MG STARTER 3 TAB BTL PO STA (19:16)
[2018-12-21] MEDS ORDERED: KETOROLAC 30 MG/ML 1 ML VIAL IVP STA (19:16)
[2018-12-21 19:47] VITALS: BP 116/59; PULSE 84
== END 2018-12-21 19:54 | disposition home or self-care (01) ==
LOC: EC 18:12
DX: S09.90XA Unspecified injury of head, initial encounter (principal); K29.70 Gastritis, unspecified, without bleeding; Z79.899 Other long term (current) drug therapy; Z91.040 Latex allergy status; W22.03XA Walked into furniture, initial encounter; Y92.009 Unspecified place in unspecified non-institutional (private) residence as the place of occurrence of the external cause
CPT/HCPCS: 70450; 99284; 96374; 96375 ×2; 96361; J1200; J2765; J1885

== ENCOUNTER → 2018-12-23 | Outpatient (CLI) | payer MEDICAID | END | disposition home or self-care (01) | LOC: LABWHC1 11:25 | PROVIDERS: ATTEND Obstetrics & Gynecology Obstetrics | DX: O02.1 Missed abortion (principal) | CPT/HCPCS: 36415; 84702 ==

== ENCOUNTER → 2019-06-07 | Outpatient (CLI) | payer MEDICAID ==
[2019-06-07 07:20] LABS: Basophils # (A) 0.1 k/uL (0-0.2); Basophils % (A) 1 %; Eosinophils # (A) 0.2 k/uL (0-0.7); Eosinophils % (A) 2 %; HCT 41.2 % (34.0-46.0); HGB 13.2 gm/dL (11.4-16.0); Lymphocytes # (A) 1.9 k/uL (1.0-4.8); Lymphocytes % (A) 24 %; MCH 28.9 pg (25.0-35.0); MCV 90.2 fL (80.0-100.0); Mean Platelet Volume 7.5; Monocytes # (A) 0.4 k/uL (0-1.0); Monocytes % (A) 5 %; Neutrophils # (A) 5.4 k/uL (1.3-7.7); Neutrophils % (A) 68 %; Platelet Count 312 k/uL (150-450); RBC 4.56 m/uL (3.80-5.40); RDW 12.8 % (11.5-15.5); WBC 7.9 k/uL (3.8-10.6)
[2019-06-07 10:11] LABS: African American GFR (CKD) 114.7 (60.0-200.0); Albumin 4.4 g/dL (3.80-4.90); Anion Gap 6.5 mmol/L (4.00-12.00); BUN/Creat Ratio 16.25 Ratio (12.00-20.00); Calcium 9.5 mg/dL (8.7-10.3); Carbon Dioxide 25.5 mmol/L (21.6-31.8); Globulin 2.2 g/dL (1.6-3.3); Non-African American GFR(CKD) 98.9 (60.0-200.0); Potassium 4.1 mmol/L (3.5-5.5); Total Bilirubin 0.5 mg/dL (0.2-1.2); Total Protein 6.6 g/dL (6.2-8.2)
[2019-06-07 10:19] LABS: T4, Free (Free Thyroxine) 1.3 ng/dL (0.80-1.80)
== END | disposition home or self-care (01) ==
LOC: LABMAIN 06:52
PROVIDERS: ATTEND Family Medicine
DX: E03.9 Hypothyroidism, unspecified (principal); G43.911 Migraine, unspecified, intractable, with status migrainosus
CPT/HCPCS: 36415; 80053; 82607; 84439; 84443; 85025

== ENCOUNTER → 2019-06-10 | Outpatient (CLI) | payer MEDICAID | END | disposition home or self-care (01) | LOC: LABMAIN 13:51 | PROVIDERS: ATTEND Obstetrics & Gynecology Obstetrics | DX: N92.5 Other specified irregular menstruation (principal) | CPT/HCPCS: 36415; 84144; 84702 ==

== ENCOUNTER → 2019-06-12 | Outpatient (CLI) | payer MEDICAID | END | disposition home or self-care (01) | LOC: LAB 06:27 | PROVIDERS: ATTEND Obstetrics & Gynecology Obstetrics | DX: N92.5 Other specified irregular menstruation (principal) | CPT/HCPCS: 84702 ==

== ENCOUNTER → 2019-11-20 | Outpatient (CLI) | payer MEDICAID ==
[2019-11-20 08:09] LABS: HCT 37.9 % (34.0-46.0); HGB 12.7 gm/dL (11.4-16.0); MCH 31.2 pg (25.0-35.0); MCHC 33.6 g/dL (31.0-37.0); MCV 92.7 fL (80.0-100.0); Mean Platelet Volume 7.3; Platelet Count 240 k/uL (150-450); RBC 4.08 m/uL (3.80-5.40); RDW 12.8 % (11.5-15.5); WBC 9.7 k/uL (3.8-10.6)
== END | disposition home or self-care (01) ==
LOC: LABWHC1 06:40
PROVIDERS: ATTEND Obstetrics & Gynecology Obstetrics
DX: Z36.9 Encounter for antenatal screening, unspecified (principal)
CPT/HCPCS: 36415; 82950; 85027

== ENCOUNTER → 2019-11-28 | Outpatient (CLI) | payer MEDICAID ==
[2019-11-28 11:28] LABS: Glucose 3 Hour, Gest 82 mg/dL
== END | disposition home or self-care (01) ==
LOC: LABWHC1 07:27
PROVIDERS: ATTEND Obstetrics & Gynecology Obstetrics
DX: O99.810 Abnormal glucose complicating pregnancy (principal); Z3A.00 Weeks of gestation of pregnancy not specified
CPT/HCPCS: 36415; 82951; 82952

== ENCOUNTER 2020-02-01 20:14 | Outpatient (CLI) | payer MEDICAID ==
[2020-02-01 21:20] VITALS: BP 131/89; PULSE 88; RESP 16; TEMP 96.5
--- NOTE | 2020-03-23 19:19 | P.MSEPDOC ---
Presenting Problems - Arrival Data Date of Arrival on Unit: 02/01/20 Time of Arrival on Unit: 20:14 Mode of Transport: Ambulatory - Complaint OB-Reason for Admission/Chief Complaint: Decreased Movement Comment: Patient presents with decreased movement, states that she has felt some movement today, but not as often as she normally does. With the last time being approximately 1 hour prior to arrival. Medical History - Information : 4 Para: 0 Term: 0 : 0 Abortions: Spontaneous or Elective: 3 Number of Living Children: 0 - Gestational Age Gestational Age by AIMEE (wks/days): 37 Weeks and 0 Days - History Complications: GDM Review of Systems - Review of Systems Constitutional: No problems Breast: No problems ENT: No problems Cardiovascular: No problems Respiratory: No problems Gastrointestinal: No problems Genitourinary: No problems Musculoskeletal: No problems Neurological: No problems Skin: No problems Vital Signs - Temperature Temperature: 96.5 F Temperature Source: Temporal Artery Scan - Pulse Pulse Oximetery Pulse Rate: 88 Pulse Assessment Method: Automatic Cuff - Respirations Respiratory Rate: 16 Oxygen Delivery Method: Room Air - Blood Pressure Sitting Blood Pressure: 131/89 Blood Pressure Mean: 103 Medical Screen Scoring (Pre) - Cervical Exam Dilation: Exam Deferred Effacement: Exam Deferred Membranes: Intact - Uterine Contractions Frequency: > 5 minutes apart = 1 Duration: > 40 seconds = 2 Intensity: N/A - Maternal Vital Signs Maternal Temperature: N/A Maternal Blood Pressure: Diastolic > 89 = 1 Signs of Preeclampsia: N/A Maternal Respirations: N/A - Maternal Trauma Maternal Trauma: N/A - Assessment - Baby A Baseline FHR: 130 Heart Rate - NICHD Category: Category I (Normal) = 0 NST: Reactive Position: N/A Station: N/A - Total Score - Baby A Total Score - Baby A: 4 - Total Score - Baby B Total Score - Baby B: 4 - Total Score - Baby C Total Score - Baby C: 4 - Level of Risk - Baby A Level of Risk - Baby A: Low (0-5) - Level of Risk - Baby B Level of Risk - Baby B: Low (0-5) - Level of Risk - Baby C Level of Risk - Baby C: Low (0-5) Physician Notification (Pre) - Physician Notified Physician Notified Date: 02/01/20 Physician Notified Time: 20:54 New Order Received: Yes - Notification Comment Comment: Orders given to re-evaluate patient's blood pressure if normal okay to discharge patient home with instructions and patient to keep regularly scheduled appt with Dr. Garcia for Friday 02/02. Repeat blood pressure 117/74. Disposition - Disposition OB Disposition: Discharge to home, Written follow up instructions reviewed Discharge Date: 02/01/20 Discharge Time: 21:05 I agree with the RN Medical Screening Exam: Yes Case reviewed; plan agreed upon as documented in EMR&OBIX.: Yes Diagnosis: decreased movement
== END 2020-02-01 21:05 | disposition home or self-care (01) ==
LOC: FBPOP 20:14
PROVIDERS: ATTEND Obstetrics & Gynecology
DX: O36.8130 Decreased fetal movements, third trimester, not applicable or unspecified (principal); Z3A.37 37 weeks gestation of pregnancy
CPT/HCPCS: 59025; 99213

== ENCOUNTER 2020-02-18 17:00 | Inpatient (IN) | payer MEDICAID ==
[2020-02-18] MEDS ORDERED: DINOPROSTONE 10 MG INSERT.ER VAGINAL ONE (17:42)
[2020-02-18] MEDS ORDERED: BUTORPHANOL 1 MG/ML 1 ML VIAL IV PRN (17:42)
[2020-02-18 17:52] LABS: Basophils % (A) 0 %; Eosinophils # (A) 0.1 k/uL (0-0.7); Eosinophils % (A) 1 %; HCT 36.7 % (34.0-46.0); HGB 12.5 gm/dL (11.4-16.0); Lymphocytes # (A) 1.9 k/uL (1.0-4.8); Lymphocytes % (A) 18 %; MCHC 34.1 g/dL (31.0-37.0); Mean Platelet Volume 8.2; Monocytes # (A) 0.3 k/uL (0-1.0); Monocytes % (A) 3 %; Neutrophils # (A) 8.1 k/uL (1.3-7.7); Neutrophils % (A) 77 %; Platelet Count 204 k/uL (150-450); RBC 4.17 m/uL (3.80-5.40); RDW 13.3 % (11.5-15.5); WBC 10.6 k/uL (3.8-10.6)
[2020-02-19] MEDS ORDERED: OXYTOCIN 10 UNIT/ML 1 ML VIAL IM PRN (03:40)
[2020-02-19] MEDS ORDERED: CARBOPROST TROMETHAMINE 250 MCG/ML 1 ML AMP IM PRN (03:40)
[2020-02-19] MEDS ORDERED: LIDOCAINE 0.5% (PF) 5 MG/ML (50 ML SDV) SQ PRN (03:40)
[2020-02-19] MEDS ORDERED: TERBUTALINE 1 MG/ML VIAL SQ PRN (03:40)
[2020-02-19] MEDS ORDERED: METHYLERGONOVINE 0.2 MG/ML 1 ML AMP IM PRN (03:40)
[2020-02-19 05:05] LABS: Hemoglobin A1C 5.1 % (4.0-6.0)
[2020-02-19 05:52] LABS: Glucose,Whole Blood 81 mg/dL (75-99)
[2020-02-19] MEDS: LACTATED RINGERS 1,000 ML IV SCH ×2 (05:57→16:47)
[2020-02-19] MEDS: LEVOTHYROXINE 25 MCG TAB PO SCH (05:58)
[2020-02-19] MEDS: OXYTOCIN 30 UNITS/500 ML NS 30 UNIT in SALINE 1 500ML.BAG IV SCH ×2 (06:01→14:39)
[2020-02-19] MEDS ORDERED: FAMOTIDINE 20 MG/2 ML VIAL IV ONE (08:56)
[2020-02-19] MEDS ORDERED: fentaNYL (PF) 50 MCG/ML 5 ML AMP ONE (10:36)
[2020-02-19] MEDS ORDERED: SODIUM CHLORIDE 0.9% 100 ML BAG ONE (10:36)
[2020-02-19] MEDS ORDERED: ROPIVACAINE 5MG/ML 20ML VIAL ONE (10:36)
[2020-02-19] MEDS ORDERED: ZOLPIDEM 5 MG TAB PO PRN (13:54)
[2020-02-19] MEDS ORDERED: IBUPROFEN 600 MG TAB PO PRN (13:54)
[2020-02-19] MEDS ORDERED: diphenhydrAMINE 50 MG/ML 1 ML VIAL IVP PRN ×2 (13:54)
[2020-02-19] MEDS ORDERED: HYDROcodone/APAP 5-325MG 1 EACH TAB PO PRN (13:54)
[2020-02-19] MEDS ORDERED: diphenhydrAMINE 50 MG CAP PO PRN (13:54)
[2020-02-19] MEDS ORDERED: HYDROCORTISONE 2.5% RECTAL CREAM 30 GM TUBE RECTAL PRN (13:54)
[2020-02-19] MEDS ORDERED: ACETAMINOPHEN TAB 325 MG TAB PO PRN (13:54)
[2020-02-19] MEDS ORDERED: SIMETHICONE 80 MG CHEWABLE PO PRN (13:54)
[2020-02-19] MEDS ORDERED: diphenhydrAMINE 25 MG CAP PO PRN (13:54)
[2020-02-19] MEDS ORDERED: BENZOCAINE/MENTHOL SPRAY 1 GM/SPRAY AEROSOL TOPICAL PRN (13:54)
[2020-02-19] MEDS ORDERED: LANOLIN CREAM 5 GM TUBE TOPICAL PRN (13:54)
--- NOTE | 2020-02-19 13:57 | P.PROBDLV ---
Vaginal Delivery Note - . Vaginal Delivery Note: This is a 29-year-old 4 para 0030 that presented to labor and delivery at 39-4/7 weeks for induction of labor. Patient was admitted and Cervidil induction of labor was begun. Patient had been receiving routine care which is been essentially uncomplicated with the exception of a diagnosis of gestational diabetes, A1. Blood sugars have been well controlled throughout . Patient did well overnight noting only occasional contractions. Patient was noted to be 1-2/80/minus 2 in the morning amniotomy is performed and Pitocin augmentation of labor was begun. Patient progressed quickly through labor eventually becoming uncomfortable and requesting epidural. Epidural was placed without difficulty by the anesthesia department. Patient progressed to complete began pushing and had a normal spontaneous vaginal delivery of a viable male infant weight of 6 pounds 3.6 ounces, and Apgars of 9 and 9 at one and 5 minutes respectively. After two-minute delayed the umbilical cords doubly clamped and cut and the placenta was delivered spontaneously intact with three-vessel cord. The was handed to the maternal abdomen. Spontaneous cry was noted at . On inspection the patient's vaginal vault a first-degree laceration was noted this was repaired with a [id number] suture of 3-0 Rapide. On inspection the laceration appeared hemostatic. All counts are correct 2 at the end of delivery, patient and infant tolerated delivery well and are resting comfortably.
[2020-02-19] MEDS: PRENATAL VIT-IRON-FOLIC ACID 1 EACH CAP PO SCH (16:47)
[2020-02-19] MEDS: buPROPion XL 150 MG TAB.ER.24H PO SCH (16:47)
[2020-02-19] MEDS: SENNOSIDES-DOCUSATE SODIUM 1 EACH TAB PO SCH (20:11)
[2020-02-20 06:01] LABS: Basophils % (A) 0 %; Eosinophils # (A) 0.1 k/uL (0-0.7); Eosinophils % (A) 1 %; HCT 36.7 % (34.0-46.0); HGB 12.5 gm/dL (11.4-16.0); Lymphocytes # (A) 1.7 k/uL (1.0-4.8); Lymphocytes % (A) 16 %; MCH 30.7 pg (25.0-35.0); MCHC 34.1 g/dL (31.0-37.0); Monocytes # (A) 0.4 k/uL (0-1.0); Monocytes % (A) 4 %; Neutrophils # (A) 8.6 k/uL (1.3-7.7); Neutrophils % (A) 78 %; Platelet Count 191 k/uL (150-450); RBC 4.08 m/uL (3.80-5.40); RDW 13.6 % (11.5-15.5)
[2020-02-20] MEDS: LEVOTHYROXINE 25 MCG TAB PO SCH (06:19)
[2020-02-20] MEDS: SENNOSIDES-DOCUSATE SODIUM 1 EACH TAB PO SCH (08:20)
[2020-02-20] MEDS: buPROPion XL 150 MG TAB.ER.24H PO SCH (08:21)
[2020-02-20] MEDS: PRENATAL VIT-IRON-FOLIC ACID 1 EACH CAP PO SCH (08:21)
[2020-02-20 08:31] VITALS: BP 133/74; PULSE 89; RESP 14; TEMP 98.4
--- NOTE | 2020-02-20 09:07 | P.DS ---
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 Patient was noted to be 39-4/7 weeks at the time. Patient had a history of gestational diabetes which has been controlled well with diet. Patient was admitted to labor and delivery and Cervidil was placed without difficulty. Patient did well overnight only noting occasional contractions., The Cervidil was pulled and she was noted to be 1-2, 80, minus 2 in the morning. Amniotomy was performed and clear fluid was noted. Pitocin augmentation of labor was begun. Patient progressed through labor eventually becoming uncomfortable and requesting epidural. Epidural was placed but difficulty by the anesthesia department. Patient progressed to complete began pushing and had a normal spontaneous vaginal delivery of a viable male weighing 6 pounds 3.6 ounces and Apgars of 9 and 9 at one and 5 minutes respectively. Patient has done well . On this day #1 she is ambulating and voiding without difficulty. She is breast-feeding with some challenge, she notes her lochia to be moderate. She denies concerns and states her pain is well-controlled. She would like discharge home at 24 hours if possible. Patient Condition at Discharge: Good Plan - Discharge Summary New Discharge Prescriptions: No Action Pnv No.95/Ferrous Fum/Folic AC [ Multivitamin Tablet] 1 each PO DAILY Levothyroxine Sodium 25 mcg PO QAM buPROPion HCL [Wellbutrin XL] 150 mg PO DAILY Famotidine [Pepcid] 40 mg PO HS Aspirin [Adult Low Dose Aspirin EC] 81 mg PO DAILY Discharge Medication List Levothyroxine Sodium 25 mcg PO QAM 02/13/18 [History] Pnv No.95/Ferrous Fum/Folic AC [ Multivitamin Tablet] 1 each PO DAILY 02/13/18 [History] Aspirin [Adult Low Dose Aspirin EC] 81 mg PO DAILY 12/11/19 [History] Famotidine [Pepcid] 40 mg PO HS 12/11/19 [History] buPROPion HCL [Wellbutrin XL] 150 mg PO DAILY 12/11/19 [History] Follow up Appointment(s)/Referral(s): Kamryn Garcia DO [Doctor of Osteopathic Medicine] - 4 Weeks Patient Instructions/Handouts: Vaginal Delivery (DC), Vaginal Delivery (GEN) Discharge Disposition: HOME SELF-CARE
--- NOTE | 2020-02-24 07:55 | P.HPOB ---
History of Present Illness H&P Date: 02/18/20 Chief Complaint: IUP at 39 and 3/7 weeks, gestational diabetes, history of r ecurrent loss This is a 29-year-old 4 para 0030 at 39-3/7 weeks that presents to labor and delivery for induction of labor. Patient has been receiving routine care which was complicated by a diagnosis of gestational diabetes. Blood sugars have been well controlled throughout . 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 Review of Systems Constitutional: Denies chills, Denies fatigue, Denies fever Ears, nose, mouth and throat: Denies headache Cardiovascular: Reports leg edema Respiratory: Denies dyspnea Gastrointestinal: Denies constipation, Denies diarrhea, Denies nausea, Denies vomiting Genitourinary: Reports Past Medical History Past Medical History: GERD/Reflux, Thyroid Disorder Additional Past Medical History / Comment(s): gastritis, gestational diabetes History of Any Multi-Drug Resistant Organisms: None Reported Past Surgical History: No Surgical Hx Reported Additional Past Surgical History / Comment(s): WISDOM TEETH -EXTRACTIONS Past Anesthesia/Blood Transfusion Reactions: No Reported Reaction Smoking Status: Never smoker - Past Family History Mother Family Medical History: Deep Vein Thrombosis (DVT) Medications and Allergies Home Medications Medication Instructions Recorded Confirmed Type Levothyroxine Sodium 25 mcg PO QAM 02/13/18 02/18/20 History Pnv No.95/Ferrous Fum/Folic AC 1 each PO DAILY 02/13/18 02/18/20 History [ Multivitamin Tablet] Aspirin [Adult Low Dose Aspirin EC] 81 mg PO DAILY 12/11/19 02/18/20 History Famotidine [Pepcid] 40 mg PO HS 12/11/19 02/18/20 History buPROPion HCL [Wellbutrin XL] 150 mg PO DAILY 12/11/19 02/18/20 History Allergies Allergy/AdvReac Type Severity Reaction Status Date / Time latex Allergy Rash/Hives Verified 02/18/20 17:42 Exam Osteopathic Statement: *. No significant issues noted on an osteopathic structural exam other than those noted in the History and Physical/Consult. 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 Results Result Diagrams: 02/20/20 05:45 Assessment and Plan (1) Term Status: Acute Code(s): Z34.90 - ENCNTR FOR SUPRVSN OF NORMAL , UNSP, UNSP TRIMESTER SNOMED Code(s): 44159524 (2) GDM (gestational diabetes mellitus), class A1 Status: Acute Code(s): O24.410 - GESTATIONAL DIABETES MELLITUS IN , DIET CONTROLLED SNOMED Code(s): 02769519 (3) High risk due to recurrent loss Status: Acute Code(s): O26.20 - PREG CARE FOR PATIENT W RECURRENT PREG LOSS, UNSP TRIMESTER SNOMED Code(s): 83144206 Plan: Patient is admitted to labor and delivery for planned Cervidil induction of labor. Options for analgesia are discussed including Stadol and epidural. Patient is counseled on the plan of care. All questions are answered patient states understanding.
== END 2020-02-20 15:00 | disposition home or self-care (01) | DRG 807 ==
LOC: 4FBP 17:10
PROVIDERS: ADMIT Obstetrics & Gynecology Obstetrics; ATTEND Obstetrics & Gynecology Obstetrics
PROC: 0HQ9XZZ Repair Perineum Skin, External Approach (ICD-10-PCS; principal; 2020-02-19)
PROC: 3E0P7VZ Introduction of Hormone into Female Reproductive, Via Natural or Artificial Opening (ICD-10-PCS; principal; 2020-02-19)
PROC: 00HU33Z Insertion of Infusion Device into Spinal Canal, Percutaneous Approach (ICD-10-PCS; principal; 2020-02-19)
PROC: 3E0R3NZ Introduction of Analgesics, Hypnotics, Sedatives into Spinal Canal, Percutaneous Approach (ICD-10-PCS; principal; 2020-02-19)
PROC: 3E033VJ Introduction of Other Hormone into Peripheral Vein, Percutaneous Approach (ICD-10-PCS; principal; 2020-02-19)
PROC: 10E0XZZ Delivery of Products of Conception, External Approach (ICD-10-PCS; principal; 2020-02-19)
DX: O24.420 Gestational diabetes mellitus in childbirth, diet controlled (principal); Z37.0 Single live birth; O26.23 Pregnancy care for patient with recurrent pregnancy loss, third trimester; O99.62 Diseases of the digestive system complicating childbirth; O99.284 Endocrine, nutritional and metabolic diseases complicating childbirth; K21.9 Gastro-esophageal reflux disease without esophagitis; O70.0 First degree perineal laceration during delivery; E07.9 Disorder of thyroid, unspecified; Z98.890 Other specified postprocedural states; Z3A.39 39 weeks gestation of pregnancy; Z79.82 Long term (current) use of aspirin; Z79.899 Other long term (current) drug therapy; Z83.2 Family history of diseases of the blood and blood-forming organs and certain disorders involving the immune mechanism; Z79.890 Hormone replacement therapy; Z91.040 Latex allergy status
CPT/HCPCS: 83036; 85025; 86850; 86900; 86901

== ENCOUNTER → 2020-04-13 | Outpatient (CLI) | payer MEDICAID ==
[2020-04-13 11:48] LABS: Glucose 2 Hour 97 mg/dL
== END | disposition home or self-care (01) ==
LOC: LABWHC1 08:32
PROVIDERS: ATTEND Obstetrics & Gynecology Obstetrics
DX: O24.419 Gestational diabetes mellitus in pregnancy, unspecified control (principal); Z3A.00 Weeks of gestation of pregnancy not specified
CPT/HCPCS: 36415; 82947; 82950

== ENCOUNTER → 2020-05-20 | Outpatient (CLI) | payer MEDICAID ==
[2020-05-20 16:01] LABS: ALT 44 U/L (8-44); AST 23 U/L (13-35); African American GFR (CKD) 140.8 (60.0-200.0); Albumin/Globulin Ratio 2.14 (1.60-3.17); Alkaline Phosphatase 112 U/L (41-126); BUN/Creat Ratio 23.33 Ratio (12.00-20.00); Carbon Dioxide 28.6 mmol/L (21.6-31.8); Chloride 104 mmol/L (96-109); Globulin 2.1 g/dL (1.6-3.3); Glucose 69 mg/dL (70-110); Non-African American GFR(CKD) 121.5 (60.0-200.0); Potassium 4.6 mmol/L (3.5-5.5); Sodium 141 mmol/L (135-145); Total Bilirubin 0.4 mg/dL (0.2-1.2); Total Protein 6.6 g/dL (6.2-8.2)
== END | disposition home or self-care (01) ==
LOC: LABWHC1 09:49
PROVIDERS: ATTEND Nurse Practitioner Gerontology
DX: E03.9 Hypothyroidism, unspecified (principal); F32.9 Major depressive disorder, single episode, unspecified
CPT/HCPCS: 36415; 80053; 84439; 84443

== ENCOUNTER → 2020-07-20 | Outpatient (CLI) | payer MEDICAID ==
[2020-07-20 19:19] LABS: T4, Free (Free Thyroxine) 1.1 ng/dL (0.80-1.80)
== END | disposition home or self-care (01) ==
LOC: LABWHC1 08:55
PROVIDERS: ATTEND Nurse Practitioner Gerontology
DX: E03.9 Hypothyroidism, unspecified (principal)
CPT/HCPCS: 36415; 84439; 84443

== ENCOUNTER → 2020-08-20 | Outpatient (CLI) | payer MEDICAID ==
--- NOTE | 2020-08-20 13:46 | XR ---
EXAMINATION TYPE: XR ankle complete LT DATE OF EXAM: 08/20/2020 CLINICAL HISTORY: Pain in left ankle TECHNIQUE: Frontal, lateral and oblique images of the left ankle are obtained. COMPARISON: None. FINDINGS: There is no acute fracture/dislocation evident in the left ankle. The ankle mortise appea rs within normal limits. There is an ankle joint effusion and lateral soft tissue swelling. IMPRESSION: Ankle joint effusion and lateral soft tissue swelling.
== END | disposition home or self-care (01) ==
LOC: RADXRWHC 12:21
PROVIDERS: ATTEND Family Medicine
DX: M25.472 Effusion, left ankle (principal); M79.89 Other specified soft tissue disorders

== ENCOUNTER → 2021-01-26 | Outpatient (CLI) | payer MEDICAID, OTHER | END | disposition home or self-care (01) | LOC: LABWHC1 09:09 | PROVIDERS: ATTEND Emergency Medicine | DX: U07.1 COVID-19 (principal) | CPT/HCPCS: 87635 ==

== ENCOUNTER → 2021-01-27 | Outpatient (CLI) | payer MEDICAID, OTHER ==
[~2021-01-27] MED LIST changes: -METHOTREXATE SODIUM (PF) 25 MG/ML 2 ML VIAL IM ONE; +SODIUM CHLORIDE 0.9% 500 ML 500 ML in EMPTY BAG 1 BAG IV PRN
[2021-01-27] MEDS: CASIRIVIMAB (REGN10933) (EUA) 600 MG, IMDEVIMAB (REGN10987) (EUA) 600 MG in SODIUM CHLO... IVPB NR (13:15)
[2021-01-27] MEDS: SODIUM CHLORIDE 0.9% 50 ML IVPB NR (13:35)
[2021-01-27 13:57] VITALS: RESP 16
[2021-01-27 14:03] VITALS: BP 111/73; PULSE 81; TEMP 98.4
== END ==
LOC: PROCWHC3 13:00
PROVIDERS: ATTEND Nurse Practitioner Gerontology
DX: U07.1 COVID-19 (principal); E66.9 Obesity, unspecified; Z68.45 Body mass index [BMI] 70 or greater, adult
CPT/HCPCS: Q0244; M0243

== ENCOUNTER → 2021-03-25 | Outpatient (CLI) | payer MEDICAID, OTHER ==
[2021-03-25 23:05] LABS: T4, Free (Free Thyroxine) 1.22 ng/dL (0.800-1.800)
== END | disposition home or self-care (01) ==
LOC: LABWHC1 15:23
PROVIDERS: ATTEND Obstetrics & Gynecology Obstetrics
DX: O24.419 Gestational diabetes mellitus in pregnancy, unspecified control (principal); Z3A.00 Weeks of gestation of pregnancy not specified; E03.9 Hypothyroidism, unspecified
CPT/HCPCS: 36415; 83036; 84439; 84443

== ENCOUNTER → 2021-06-29 | Outpatient (CLI) | payer MEDICAID ==
[2021-06-29 14:53] LABS: T4, Free (Free Thyroxine) 1.28 ng/dL (0.800-1.800)
[2021-06-29 14:56] LABS: Hepatitis B Surface Antigen Nonreactive (Nonreactive)
[2021-06-29 14:57] LABS: HCT 38.1 % (37.2-46.3); HGB 12.4 g/dL (12.0-15.0); MCH 29.5 pg (27.0-32.0); MCHC 32.5 g/dL (32.0-37.0); MCV 90.7 fL (80.0-97.0); Mean Platelet Volume 10.2 fL (9.5-12.2); NRBC Per 100 WBC 0 /100 WBCS (0.0-0.0); Platelet Count 238 X 10*3/uL (140-440); RDW 12.6 % (11.5-14.5); WBC 7.82 X 10*3/uL (4.50-10.00)
[2021-06-29 15:54] LABS: Appearance,Urine Cloudy (Clear); Bilirubin,Urine Negative (Negative); Blood,Urine Negative (Negative); Color,Urine Dark Yellow (Yellow); Ketones,Urine Trace mg/dL (Negative); Nitrite,Urine Negative (Negative); PH, Urine 5.5 (5.0-8.0); Specific Gravity,Urine 1.027 (1.001-1.030)
[2021-06-29 16:50] LABS: Bacteria,Urine 3+ /HPF (None Seen)
[2021-06-29 18:14] LABS: HIV 2 AB Non-Reactive (Non-Reactive); HIV AB P24 Non-Reactive (Non-Reactive); HIV P24 AG Non-Reactive (Non-Reactive)
== END | disposition home or self-care (01) ==
LOC: LABWHC1 06:40
PROVIDERS: ATTEND Obstetrics & Gynecology Obstetrics
DX: O99.281 Endocrine, nutritional and metabolic diseases complicating pregnancy, first trimester (principal); Z3A.00 Weeks of gestation of pregnancy not specified; E03.9 Hypothyroidism, unspecified
CPT/HCPCS: 36415; 81001; 82950; 83036; 84439; 84443; 85027; 86762; 86780; 86850; 86900; 86901; 87086; 87340; 87390

== ENCOUNTER → 2021-10-21 | Outpatient (CLI) | payer MEDICAID ==
[2021-10-21 14:46] LABS: HCT 35.8 % (37.2-46.3); HGB 11.7 g/dL (12.0-15.0); MCH 29.8 pg (27.0-32.0); MCHC 32.7 g/dL (32.0-37.0); MCV 91.1 fL (80.0-97.0); Mean Platelet Volume 10.8 fL (9.5-12.2); NRBC Per 100 WBC 0 /100 WBCS (0.0-0.0); Platelet Count 220 X 10*3/uL (140-440); RBC 3.93 X 10*6/uL (4.10-5.20); RDW 13.4 % (11.5-14.5); WBC 10.36 X 10*3/uL (4.50-10.00)
[2021-10-21 15:07] LABS: T4, Free (Free Thyroxine) 0.89 ng/dL (0.800-1.800)
== END | disposition home or self-care (01) ==
LOC: LABWHC1 08:13
PROVIDERS: ATTEND Obstetrics & Gynecology Obstetrics
DX: Z32.01 Encounter for pregnancy test, result positive (principal); O99.280 Endocrine, nutritional and metabolic diseases complicating pregnancy, unspecified trimester; O13.3 Gestational [pregnancy-induced] hypertension without significant proteinuria, third trimester; Z3A.00 Weeks of gestation of pregnancy not specified
CPT/HCPCS: 36415; 84439; 84443; 85027

== ENCOUNTER 2022-01-09 05:59 | Inpatient (IN) | payer MEDICAID ==
[2022-01-09] MEDS ORDERED: LIDOCAINE 0.5% (PF) 5 MG/ML (50 ML SDV) SQ PRN (06:17)
[2022-01-09] MEDS ORDERED: TERBUTALINE 1 MG/ML VIAL SQ PRN (06:17)
[2022-01-09] MEDS: OXYTOCIN 30 UNITS/500 ML NS 30 UNIT in SALINE 1 500ML.BAG IV SCH ×2 (06:39→19:37)
[2022-01-09] MEDS: LACTATED RINGERS 1,000 ML IV SCH ×2 (06:40→13:33)
[2022-01-09 06:54] LABS: Basophils % (A) 0 %; Eosinophils # (A) 0.1 k/uL (0-0.7); Eosinophils % (A) 1 %; HCT 36.6 % (34.0-46.0); HGB 12.3 gm/dL (11.4-16.0); Lymphocytes # (A) 1.8 k/uL (1.0-4.8); Lymphocytes % (A) 26 %; MCH 29.4 pg (25.0-35.0); MCHC 33.7 g/dL (31.0-37.0); MCV 87.5 fL (80.0-100.0); Mean Platelet Volume 10.3; Monocytes # (A) 0.2 k/uL (0-1.0); Monocytes % (A) 3 %; Neutrophils # (A) 4.7 k/uL (1.3-7.7); Neutrophils % (A) 69 %; Platelet Count 182 k/uL (150-450); RBC 4.18 m/uL (3.80-5.40); RDW 14.2 % (11.5-15.5); WBC 6.9 k/uL (3.8-10.6)
[2022-01-09 07:30] LABS: Glucose,Whole Blood 89 mg/dL (70-110)
--- NOTE | 2022-01-09 08:53 | P.HPOB ---
History of Present Illness H&P Date: 01/09/22 Chief Complaint: IUP at 39 and 2, gestational diabetes This is a 31-year-old at 39-2/7 weeks that presents to labor and delivery for induction of labor, EDC of 01/14 based on last menstrual period and consistent with first trimester ultrasound. Patient has been diagnosed during this with gestational diabetes and is controlled with metformin. In addition she has a history of hypothyroidism which also has been well controlled throughout the . Patient does note good movement and occasional contraction. She denies vaginal bleeding or loss of fluid. On bloodwork this patient has a blood type of A+, rubella status immune, B surface antigen negative, HIV negative, RPR is nonreactive, group beta strep cultures are negative on 12/15. Review of Systems Constitutional: Denies chills, Denies fatigue, Denies fever Ears, nose, mouth and throat: Denies headache Cardiovascular: Reports leg edema Respiratory: Denies dyspnea Gastrointestinal: Denies constipation, Denies diarrhea, Denies nausea, Denies vomiting Genitourinary: Reports Past Medical History Past Medical History: GERD/Reflux, Thyroid Disorder Additional Past Medical History / Comment(s): gastritis, gestational diabetes History of Any Multi-Drug Resistant Organisms: None Reported Past Surgical History: No Surgical Hx Reported Additional Past Surgical History / Comment(s): WISDOM TEETH -EXTRACTIONS, D&C Past Anesthesia/Blood Transfusion Reactions: No Reported Reaction Past Psychological History: ADD/ADHD, Anxiety, Depression Smoking Status: Never smoker Past Alcohol Use History: Occasional Past Drug Use History: None Reported - Past Family History Mother Family Medical History: Deep Vein Thrombosis (DVT) Medications and Allergies Home Medications Medication Instructions Recorded Confirmed Type Levothyroxine Sodium 25 mcg PO QAM 02/13/18 01/09/22 History Pnv No.95/Ferrous Fum/Folic AC 1 each PO DAILY 02/13/18 01/09/22 History [ Multivitamin Tablet] Aspirin [Adult Low Dose Aspirin EC] 81 mg PO DAILY 12/11/19 01/09/22 History Famotidine [Pepcid] 40 mg PO HS 12/11/19 01/09/22 History Escitalopram [Lexapro] 10 mg PO DAILY 01/09/22 01/09/22 History Allergies Allergy/AdvReac Type Severity Reaction Status Date / Time latex Allergy Rash/Hives Verified 01/09/22 06:14 Exam Osteopathic Statement: *. No significant issues noted on an osteopathic structural exam other than those noted in the History and Physical/Consult. 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 heart tones are noted to be category 1 and she is jevon irregularly. Results Result Diagrams: 01/09/22 06:43 Assessment and Plan (1) GDM (gestational diabetes mellitus), class A1 Current Visit: No Status: Acute Code(s): O24.410 - GESTATIONAL DIABETES MELLITUS IN , DIET CONTROLLED SNOMED Code(s): 12426425 (2) Term Current Visit: No Status: Acute Code(s): Z34.90 - ENCNTR FOR SUPRVSN OF NORMAL , UNSP, UNSP TRIMESTER SNOMED Code(s): 22409374 Plan: 33-year-old 031 at 39-2/7 weeks presents for induction of labor secondary to gestational diabetes. Patient is admitted to labor and delivery and Pitocin induction of labor is begun. Options for analgesia are discussed including Stadol, nitrous and epidural. Patient does desire epidural when appropriate. Anticipate spontaneous vaginal delivery later today.
[2022-01-09] MEDS ORDERED: BUTORPHANOL 1 MG/ML 1 ML VIAL IV PRN (09:13)
[2022-01-09] MEDS ORDERED: FAMOTIDINE 20 MG TAB PO STA (10:11)
[2022-01-09] MEDS ORDERED: ROPIVACAINE 5 MG/ML 20 ML AMPULE ONE (11:40)
[2022-01-09] MEDS ORDERED: fentaNYL (PF) 50 MCG/ML 5 ML AMP ONE (11:40)
[2022-01-09] MEDS ORDERED: SODIUM CHLORIDE 0.9% 100 ML BAG ONE (11:40)
[2022-01-09] MEDS ORDERED: ROPIVACAINE 100 MG, fentaNYL (PF). 200 MCG in SODIUM CHLORIDE 0.9% 76 ML EPIDURAL ONE (13:48)
[2022-01-09] MEDS ORDERED: IBUPROFEN IV 800 MG in SODIUM CHLORIDE 0.9% 250 ML IV STA (19:03)
--- NOTE | 2022-01-09 19:33 | P.PROBDLV ---
Vaginal Delivery Note - . Vaginal Delivery Note: findings: viable male infant delivered at 1853, weight of 7 lbs. 6 oz. in occiput anterior presentation this is a 31-year-old 5 para 1031 at 39-2/7 weeks that presented to labor and delivery for induction of labor this morning. Patient was admitted to labor and delivery and Pitocin induction of labor was begun. Patient has been receiving routine. Care which has been completed by diagnosis of gestational diabetes. Patient has well controlled on metformin and dietary changes. Blood sugars have been excellent throughout the . Patient was admitted to labor and delivery Pitocin induction of labor was begun per hospital protocol. Patient underwent amniotomy and clear fluid was obtained. Patient progressed through labor eventually becoming uncomfortable requesting epidural placement. Epidural was placed without difficulty by the anesthesia department. Patient did progressed to complete but was noted to be very comfortable with her epidural and did not feel any pressure to push. Epidural was turned off and patient began to feel the pressure to push. Patient commenced pushing. was noted to be in occiput posterior presentation. With excellent maternal effort patient did bring the infant down to a presentation. The head followed by the anterior/posterior shoulder the body was then delivered and placed on the maternal abdomen. The umbilical cord was doubly clamped and cut and the was handed to awaiting RN. The placenta was then delivered spontaneously intact with a three-vessel cord being noted. The uterus is noted to be boggy and Pitocin was begun. The uterus did firm nicely, estimated blood loss 300 mL. Patient and tolerated delivery well and are resting comfortably
[2022-01-09] MEDS ORDERED: METHYLERGONOVINE 0.2 MG/ML 1 ML AMP IM ONE (19:37)
[2022-01-09] MEDS ORDERED: ZOLPIDEM 5 MG TAB PO PRN (22:01)
[2022-01-09] MEDS ORDERED: HYDROCORTISONE 2.5% RECTAL CREAM 30 GM TUBE RECTAL PRN (22:01)
[2022-01-09] MEDS ORDERED: diphenhydrAMINE 50 MG/ML 1 ML VIAL IVP PRN ×2 (22:01)
[2022-01-09] MEDS ORDERED: IBUPROFEN 600 MG TAB PO PRN (22:01)
[2022-01-09] MEDS ORDERED: diphenhydrAMINE 50 MG CAP PO PRN (22:01)
[2022-01-09] MEDS ORDERED: LANOLIN CREAM 5 GM TUBE TOPICAL PRN (22:01)
[2022-01-09] MEDS ORDERED: diphenhydrAMINE 25 MG CAP PO PRN (22:01)
[2022-01-09] MEDS ORDERED: BENZOCAINE/MENTHOL SPRAY 1 GM/SPRAY AEROSOL TOPICAL PRN (22:01)
[2022-01-09] MEDS ORDERED: ACETAMINOPHEN TAB 325 MG TAB PO PRN (22:01)
[2022-01-09] MEDS ORDERED: SIMETHICONE 80 MG CHEWABLE PO PRN (22:01)
[2022-01-09] MEDS: SENNOSIDES-DOCUSATE SODIUM 1 EACH TAB PO SCH (22:50)
[2022-01-10] MEDS: SENNOSIDES-DOCUSATE SODIUM 1 EACH TAB PO SCH (07:59)
[2022-01-10 08:43] VITALS: RESP 18
--- NOTE | 2022-01-10 11:01 | P.PNOBGVD ---
Subjective - Subjective Principal diagnosis: PPD 1 Interval history: Patient is doing well . she states she is feeling well. lochia is moderate. breast feeding is going well. she states her pain is well controlled. she is tolerating a regular diet without nausea or vomiting. Patient reports: Reports appetite normal, Reports voiding normally, Reports pain well controlled, Reports ambulating normally : doing well, nursing well Objective - Latest Vital Signs Latest vital signs: Vital Signs Temp Pulse Resp BP Pulse Ox 01/10/22 07:50 98.8 F 77 18 118/78 99 01/10/22 04:00 88 16 131/80 97 01/10/22 00:00 98.4 F 87 16 147/81 95 01/09/22 21:10 74 16 158/72 01/09/22 20:40 86 16 157/66 01/09/22 20:10 92 16 157/64 01/09/22 19:55 69 16 139/69 01/09/22 19:40 77 16 133/63 01/09/22 19:25 75 16 141/62 01/09/22 19:10 93 16 146/69 Intake and Output 01/09/22 01/10/22 01/10/22 22:59 06:59 14:59 Intake Total 24.7 Output Total 105 Balance -80.3 Intake: Intake, IV Titration 24.7 Amount Oxytocin 30 Units/500 ml 24.7 Ns 30 unit In Saline 1 500ml.bag @ Per Protocol IV .Q0M [facility] Rx#:[id number] Output: Output, Quantitative 105 Blood Loss Other: Voiding Method Toilet # Voids 1 1 1 - Exam Extremities: Present: normal, edema Abdomen: Present: normal appearance, soft Uterus: Present: normal, firm Assessment and Plan (1) GDM (gestational diabetes mellitus), class A1 Current Visit: No Status: Acute Code(s): O24.410 - GESTATIONAL DIABETES MELLITUS IN , DIET CONTROLLED SNOMED Code(s): 96543682 (2) Term Current Visit: No Status: Acute Code(s): Z34.90 - ENCNTR FOR SUPRVSN OF NORMAL , UNSP, UNSP TRIMESTER SNOMED Code(s): 46536473 (3) Status post vaginal delivery Current Visit: No Status: Acute Code(s): BYY4734 - SNOMED Code(s): 255029960 Plan: Patient is doing well . she is feeling well and would like discharge home later today. plan circumcision later today and d/c [place]
--- NOTE | 2022-01-10 12:24 | P.DS ---
Providers Date of admission: 01/09/22 05:59 Expected date of discharge: 01/10/22 Attending physician: Kamryn Garcia Primary care physician: Stated None - Discharge Diagnosis(es) (1) GDM (gestational diabetes mellitus), class A1 Current Visit: No Status: Acute (2) Term Current Visit: No Status: Acute (3) Status post vaginal delivery Current Visit: No Status: Acute Hospital Course: this is a 31-year-old G5 now P2 032 that presented to labor and delivery yesterday at 39-2/7 weeks for elective induction of labor. Patient had care which is Located by diagnosis of gestational diabetes well- controlled on metformin. Patient was admitted to labor and delivery and Pitocin induction of labor was begun. Patient made slow progress through labor amniotomy was performed and clear fluid was obtained. Patient did become uncomfortable and requested epidural placement. Epidural was placed without difficulty by the anesthesia . Patient progressed through labor eventually becoming complete. Patient had a normal spontaneous vaginal delivery of a viable male infant at 1853, weight of 7 lbs. 6 oz., Apgars of 8 and 9 at one and 5 minutes respectively. Patient has done well . She is ambulate and voiding without difficulty. She is tolerating a regular diet without nausea or vomiting. She states her pain is well-controlled. She would like discharge home at 24 hours if possible. She does request circumcision of her prior to discharge and this has been completed. Patient Condition at Discharge: Good Plan - Discharge Summary Discharge Rx Participant: Yes New Discharge Prescriptions: No Action Pnv No.95/Ferrous Fum/Folic AC [ Multivitamin Tablet] 1 each PO DAILY Levothyroxine Sodium 25 mcg PO QAM Famotidine [Pepcid] 40 mg PO HS Aspirin [Adult Low Dose Aspirin EC] 81 mg PO DAILY Escitalopram [Lexapro] 10 mg PO DAILY Discharge Medication List Levothyroxine Sodium 25 mcg PO QAM 02/13/18 [History] Pnv No.95/Ferrous Fum/Folic AC [ Multivitamin Tablet] 1 each PO DAILY 02/13/18 [History] Aspirin [Adult Low Dose Aspirin EC] 81 mg PO DAILY 12/11/19 [History] Famotidine [Pepcid] 40 mg PO HS 12/11/19 [History] Escitalopram [Lexapro] 10 mg PO DAILY 01/09/22 [History] Follow up Appointment(s)/Referral(s): Kamryn Garcia DO [Doctor of Osteopathic Medicine] - 4 Weeks Patient Instructions/Handouts: Vaginal Delivery (GEN), Vaginal Delivery (DC) Activity/Diet/Wound Care/Special Instructions: no tub baths or intercourse until 6 weeks . Patient is encouraged to make a post routine follow-up at 4 weeks. Patient is counseled on [id number] ibuprofen as needed for pain. Post bleeding is reviewed and questions are answered. Should patient have any concerns prior to her 4 week checkup she is asked to call the office. Discharge Disposition: HOME SELF-CARE
[2022-01-10 17:26] VITALS: BP 119/76; PULSE 83; TEMP 98.2
== END 2022-01-10 19:40 | disposition home or self-care (01) | DRG 807 ==
LOC: 4FBP 05:59
PROVIDERS: ADMIT Obstetrics & Gynecology Obstetrics; ATTEND Obstetrics & Gynecology Obstetrics
PROC: 3E033VJ Introduction of Other Hormone into Peripheral Vein, Percutaneous Approach (ICD-10-PCS; principal; 2022-01-09)
PROC: 10907ZC Drainage of Amniotic Fluid, Therapeutic from Products of Conception, Via Natural or Artificial Opening (ICD-10-PCS; principal; 2022-01-09)
PROC: 10E0XZZ Delivery of Products of Conception, External Approach (ICD-10-PCS; principal; 2022-01-09)
PROC: 4A0HXCZ Measurement of Products of Conception, Cardiac Rate, External Approach (ICD-10-PCS; principal; 2022-01-09)
DX: O24.425 Gestational diabetes mellitus in childbirth, controlled by oral hypoglycemic drugs (principal); Z37.0 Single live birth; E03.9 Hypothyroidism, unspecified; F32.A Depression, unspecified; K21.9 Gastro-esophageal reflux disease without esophagitis; O99.62 Diseases of the digestive system complicating childbirth; F41.9 Anxiety disorder, unspecified; F90.9 Attention-deficit hyperactivity disorder, unspecified type; O99.284 Endocrine, nutritional and metabolic diseases complicating childbirth; O99.344 Other mental disorders complicating childbirth; Z3A.39 39 weeks gestation of pregnancy; Z79.82 Long term (current) use of aspirin; Z79.899 Other long term (current) drug therapy; Z91.040 Latex allergy status
CPT/HCPCS: 85025; 86850; 86900; 86901

== ENCOUNTER → 2022-05-22 | Outpatient (CLI) | payer MEDICAID ==
[2022-05-22 22:14] LABS: ALT 27 U/L (8-44); AST 15 U/L (13-35)
== END | disposition home or self-care (01) ==
LOC: LABWHC1 12:54
PROVIDERS: ATTEND Obstetrics & Gynecology Obstetrics
DX: R79.89 Other specified abnormal findings of blood chemistry (principal)
CPT/HCPCS: 36415; 84450; 84460

== ENCOUNTER → 2022-12-07 | Outpatient (CLI) | payer MEDICAID ==
[2022-12-07 11:09] LABS: Basophils # (A) 0.05 X 10*3/uL (0.00-0.10); Basophils % (A) 0.6 %; Eosinophils # (A) 0.21 X 10*3/uL (0.04-0.35); Eosinophils % (A) 2.6 %; HCT 42.8 % (37.2-46.3); HGB 13.9 d/dL (12.0-15.0); Lymphocytes # (A) 2.02 X 10*3/uL (0.90-5.00); Lymphocytes % (A) 24.8 %; MCH 29.5 pg (27.0-32.0); MCHC 32.5 d/dL (32.0-37.0); MCV 90.9 FL (80.0-97.0); Mean Platelet Volume 10.3 FL (9.5-12.2); Monocytes # (A) 0.41 X 10*3/uL (0.20-1.00); NRBC Per 100 WBC 0 X 10*3/uL (0.00-0.01); Neutrophils # (A) 5.45 X 10*3/uL (1.80-7.70); Neutrophils % (A) 66.8 %; Platelet Count 314 X 10*3/uL (140-440); RBC 4.71 X 10*6/uL (4.10-5.20); RDW 12.8 % (11.5-14.5); WBC 8.16 X 10*3/uL (4.50-10.00)
[2022-12-07 11:37] LABS: ALT 20 U/L (8-44); AST 13 U/L (13-35); Albumin 4.4 d/dL (3.8-4.9); Albumin/Globulin Ratio 1.63 Ratio (1.60-3.17); Alkaline Phosphatase 107 U/L (41-126); BUN/Creat Ratio 18.14 Ratio (12.00-20.00); Blood Urea Nitrogen 12.7 mg/dL (9.0-27.0); Calcium 9.6 mg/dL (8.7-10.3); Carbon Dioxide 26.1 mmol/L (21.6-31.8); Chloride 105 mmol/L (96-109); Chol/HDL Ratio 3.44 Ratio; Globulin 2.7 d/dL (1.6-3.3); Glucose 109 mg/dL (70-110); LDL Cholesterol,Calculated 106.2 mg/dL (0.0-131.0); Potassium 4.5 mmol/L (3.5-5.5); Sodium 142 mmol/L (135-145); T4, Free (Free Thyroxine) 1.09 ng/dL (0.80-1.80); Total Bilirubin 0.3 mg/dL (0.3-1.2); Total Protein 7.1 d/dL (6.2-8.2); VLDL Calculation 12.88 mg/dL (5.00-40.00)
== END | disposition home or self-care (01) ==
LOC: LABWHC1 07:36
PROVIDERS: ATTEND Family Medicine
DX: O24.419 Gestational diabetes mellitus in pregnancy, unspecified control (principal); Z3A.00 Weeks of gestation of pregnancy not specified; E03.9 Hypothyroidism, unspecified; E78.1 Pure hyperglyceridemia; R53.83 Other fatigue; E55.9 Vitamin D deficiency, unspecified; E53.8 Deficiency of other specified B group vitamins
CPT/HCPCS: 36415; 80053; 80061; 82306; 82607; 83036; 84439; 84443; 85025

== ENCOUNTER 2023-03-04 02:38 | Emergency (ER) | payer MEDICAID ==
[2023-03-04 03:16] VITALS: TEMP 98.1
[2023-03-04] MEDS ORDERED: SODIUM CHLORIDE 0.9% 1,000 ML IV STA (03:22)
--- NOTE | 2023-03-04 03:43 | ED ---
General Adult HPI - General Chief complaint: Abdominal Pain Stated complaint: Abd pain Time Seen by Provider: 03/04/23 03:01 Source: patient, RN notes reviewed, old records reviewed Mode of arrival: ambulatory Limitations: no limitations - History of Present Illness Initial comments: 32-year-old female presenting for upper abdominal pain nausea and vomiting. Patient has had upper abdominal pain for the past 2 weeks. She attributes this to a new medication Ozempic. She has contacted gastroenterology for evaluation regarding this symptom however tonight she developed significant nausea and vomiting. She had vomited once at the time of my initial evaluation and states that this did improve her symptoms dramatically. No fever. - Related Data Home Medications Medication Instructions Recorded Confirmed Levothyroxine Sodium 25 mcg PO QAM 02/13/18 01/09/22 Pnv No.95/Ferrous Fum/Folic AC 1 each PO DAILY 02/13/18 01/09/22 [ Multivitamin Tablet] Aspirin [Adult Low Dose Aspirin EC] 81 mg PO DAILY 12/11/19 01/09/22 Famotidine [Pepcid] 40 mg PO HS 12/11/19 01/09/22 Escitalopram [Lexapro] 10 mg PO DAILY 01/09/22 01/09/22 Allergies Allergy/AdvReac Type Severity Reaction Status Date / Time latex Allergy Rash/Hives Verified 03/04/23 02:56 Review of Systems ROS Statement: Those systems with pertinent positive or pertinent negative responses have been documented in the HPI. ROS Other: All systems not noted in ROS Statement are negative. Past Medical History Past Medical History: GERD/Reflux, Thyroid Disorder Additional Past Medical History / Comment(s): gastritis, gestational diabetes History of Any Multi-Drug Resistant Organisms: None Reported Past Surgical History: No Surgical Hx Reported Additional Past Surgical History / Comment(s): WISDOM TEETH -EXTRACTIONS, D&C Past Anesthesia/Blood Transfusion Reactions: No Reported Reaction Past Psychological History: ADD/ADHD, Anxiety, Depression Smoking Status: Never smoker Past Alcohol Use History: Occasional Past Drug Use History: None Reported - Past Family History Mother Family Medical History: Deep Vein Thrombosis (DVT) General Exam Limitations: no limitations General appearance: alert, in no apparent distress Head exam: Present: atraumatic, normocephalic Eye exam: Present: normal appearance, PERRL ENT exam: Present: mucous membranes dry Neck exam: Present: normal inspection. Absent: tenderness, meningismus Respiratory exam: Present: normal lung sounds bilaterally. Absent: respiratory distress, wheezes Cardiovascular Exam: Present: regular rate, normal rhythm GI/Abdominal exam: Present: soft, tenderness (Very mild epigastric tenderness). Absent: distended Extremities exam: Present: normal inspection, normal capillary refill Neurological exam: Present: alert, oriented X3, CN II-XII intact. Absent: motor sensory deficit Psychiatric exam: Present: normal affect, normal mood Skin exam: Present: warm, dry, intact Course Vital Signs 03/04/23 02:54 Temperature 98.1 F Pulse Rate 107 H Respiratory 20 Rate Blood Pressure 124/88 O2 Sat by Pulse 100 Oximetry - Reevaluation(s) Reevaluation #1: 03/04/23 04:45 Patient reevaluated, symptoms completely resolved. Medical Decision Making - Medical Decision Making Was pt. sent in by a medical professional or institution (, PA, CONTINUITY MANAGER, urgent care, hospital, or half-way...) When possible be specific @ -No Did you speak to anyone other than the patient for history (EMS, parent, family, police, friend...)? What history was obtained from this source @ -No Did you review nursing and triage notes (agree or disagree)? Why? @ -I reviewed and agree with nursing and triage notes Were old charts reviewed (outside hosp., previous admission, EMS record, old EKG, old radiological studies, urgent care reports/EKG's, half-way records)? Report findings @ -No old charts were reviewed Differential Diagnosis (chest pain, altered mental status, abdominal pain women, abdominal pain men, vaginal bleeding, weakness, fever, dyspnea, syncope, headache, dizziness, GI bleed, back pain, seizure, CVA, palpatations, mental health, musculoskeletal)? @ -Differential Abdominal Pain Women: Appendicitis, Cholecystitis, diverticulosis, ischemic bowel, pancreatitis, hepatitis, UTI, gastroenteritis, AAA, incarcerated hernia, bowel obstruction, constipation, inflammatory bowel, hepatitis, peptic ulcer disease, splenic infarction, perforated viscus, vulvitis, ovarian torsion, PID, kidney stone, placenta abruption, this is not meant to be an all-inclusive list EKG interpreted by me (3pts min.). @ -As above X-rays interpreted by me (1pt min.). @ -None done CT interpreted by me (1pt min.). @ -None done U/S interpreted by me (1pt. min.). @ -None done What testing was considered but not performed or refused? (CT, X-rays, U/S, labs)? Why? @ -None What meds were considered but not given or refused? Why? @ -None Did you discuss the management of the patient with other professionals (professionals i.e. DrDestiney, PA, CONTINUITY MANAGER, lab, RT, psych nurse, clinical social worker, cardiac/vascular sonographer, teacher, operations officer afloat, case resource manager)? Give summary @ -No Was smoking cessation discussed for >3mins.? @ -No Was critical care preformed (if so, how long)? @ -No Were there social determinants of health that impacted care today? How? (Homelessness, low income, unemployed, alcoholism, drug addiction, transportation, low edu. Level, literacy, decrease access to med. care, longterm, rehab)? @ -No Was there de-escalation of care discussed even if they declined (Discuss DNR or withdrawal of care, Hospice)? DNR status @ -No What co-morbidities impacted this encounter? (DM, HTN, Smoking, COPD, CAD, Cancer, CVA, ARF, Chemo, Hep., AIDS, mental health diagnosis, sleep apnea, m orbid obesity)? @ -None Was patient admitted / discharged? Hospital course, mention meds given and route, prescriptions, significant lab abnormalities, going to OR and other pertinent info. @ -32-year-old female presenting for evaluation of predominantly nausea and vomiting. Symptoms have significantly improved after an episode of vomiting which occurred as the patient arrived in the emergency department. She has a leukocytosis and lactic acid but otherwise normal laboratory testing. Her sy mptoms remain resolved on reevaluation. I did offer the possibility of an ultrasound of the gallbladder patient states that she would be able to get this as an outpatient. She is given return parameters and is stable for discharge. Undiagnosed new problem with uncertain prognosis? @ -No Drug Therapy requiring intensive monitoring for toxicity (Heparin, Nitro, Insulin, Cardizem)? @ -No Were any procedures done? @ -No Diagnosis/symptom? @ -Nausea vomiting, abdominal pain Acute, or Chronic, or Acute on Chronic? @ -[Acute Uncomplicated (without systemic symptoms) or Complicated (systemic symptoms)? @ -Default Side effects of treatment? @ -No Exacerbation, Progression, or Severe Exacerbation? @ -No Poses a threat to life or bodily function? How? (Chest pain, USA, OR, pneumonia, PE, COPD, DKA, ARF, appy, cholecystitis, CVA, Diverticulitis, Homicidal, Suicidal, threat to staff... and all critical care pts) @ -[Low risk at this time - Lab Data Result diagrams: 03/04/23 03:31 03/04/23 03:31 Lab Results 03/04/23 03/04/23 03/04/23 Range/Units 03:31 03:31 03:31 WBC 14.0 H (3.8-10.6) k/uL RBC 5.08 (3.80-5.40) m/uL Hgb 15.1 (11.4-16.0) gm/dL Hct 45.4 (34.0-46.0) % MCV 89.3 (80.0-100.0) fL MCH 29.8 (25.0-35.0) pg MCHC 33.3 (31.0-37.0) g/dL RDW 13.1 (11.5-15.5) % Plt Count 317 (150-450) k/uL MPV 7.7 Neutrophils % 62 % Lymphocytes % 24 % Monocytes % 4 % Eosinophils % 8 % Basophils % 1 % Neutrophils # 8.6 H (1.3-7.7) k/uL Lymphocytes # 3.4 (1.0-4.8) k/uL Monocytes # 0.6 (0-1.0) k/uL Eosinophils # 1.1 H (0-0.7) k/uL Basophils # 0.1 (0-0.2) k/uL PT 10.3 (10.0-12.5) sec INR 0.9 (<1.2) APTT 24.7 (22.0-30.0) sec Sodium (137-145) mmol/L Potassium (3.5-5.1) mmol/L Chloride (98-107) mmol/L Carbon Dioxide (22-30) mmol/L Anion Gap mmol/L BUN (7-17) mg/dL Creatinine (0.52-1.04) mg/dL Est GFR (CKD-EPI)AfAm (>60 ml/min/1.73 sqM) Est GFR (CKD-EPI)NonAf (>60 ml/min/1.73 sqM) Glucose (74-99) mg/dL Plasma Lactic Acid [place] (0.7-2.0) mmol/L Calcium (8.4-10.2) mg/dL Total Bilirubin (0.2-1.3) mg/dL AST (14-36) U/L ALT (4-34) U/L Alkaline Phosphatase (38-126) U/L Total Protein (6.3-8.2) g/dL Albumin (3.5-5.0) g/dL Amylase (30-110) U/L Lipase (23-300) U/L Urine Color Light Yellow Urine Appearance Clear (Clear) Urine pH 7.0 (5.0-8.0) Ur Specific [place] 1.019 (1.001-1.035) Urine Protein Negative (Negative) Urine Glucose (UA) Negative (Negative) Urine Ketones Negative (Negative) Urine Blood Negative (Negative) Urine Nitrite Negative (Negative) Urine Bilirubin Negative (Negative) Urine Urobilinogen <2.0 (<2.0) mg/dL Ur Leukocyte Esterase Negative (Negative) Urine HCG, Qual (Not Detectd) 03/04/23 03/04/23 03/04/23 Range/Units 03:31 03:31 03:31 WBC (3.8-10.6) k/uL RBC (3.80-5.40) m/uL Hgb (11.4-16.0) gm/dL Hct (34.0-46.0) % MCV (80.0-100.0) fL MCH (25.0-35.0) pg MCHC (31.0-37.0) g/dL RDW (11.5-15.5) % Plt Count (150-450) k/uL MPV Neutrophils % % Lymphocytes % % Monocytes % % Eosinophils % % Basophils % % Neutrophils # (1.3-7.7) k/uL Lymphocytes # (1.0-4.8) k/uL Monocytes # (0-1.0) k/uL Eosinophils # (0-0.7) k/uL Basophils # (0-0.2) k/uL PT (10.0-12.5) sec INR (<1.2) APTT (22.0-30.0) sec Sodium 141 (137-145) mmol/L Potassium 4.2 (3.5-5.1) mmol/L Chloride 106 (98-107) mmol/L Carbon Dioxide 21 L (22-30) mmol/L Anion Gap 14 mmol/L BUN 13 (7-17) mg/dL Creatinine 0.66 (0.52-1.04) mg/dL Est GFR (CKD-EPI)AfAm >90 (>60 ml/min/1.73 sqM) Est GFR (CKD-EPI)NonAf >90 (>60 ml/min/1.73 sqM) Glucose 110 H (74-99) mg/dL Plasma Lactic Acid [place] 3.0 H* (0.7-2.0) mmol/L Calcium 10.1 (8.4-10.2) mg/dL Total Bilirubin 0.5 (0.2-1.3) mg/dL AST 23 (14-36) U/L ALT 29 (4-34) U/L Alkaline Phosphatase 106 (38-126) U/L Total Protein 7.8 (6.3-8.2) g/dL Albumin 4.8 (3.5-5.0) g/dL Amylase 62 (30-110) U/L Lipase 84 (23-300) U/L Urine Color Urine Appearance (Clear) Urine pH (5.0-8.0) Ur Specific [place] (1.001-1.035) Urine Protein (Negative) Urine Glucose (UA) (Negative) Urine Ketones (Negative) Urine Blood (Negative) Urine Nitrite (Negative) Urine Bilirubin (Negative) Urine Urobilinogen (<2.0) mg/dL Ur Leukocyte Esterase (Negative) Urine HCG, Qual Not Detected (Not Detectd) Disposition Clinical Impression: Abdominal pain, Nausea & vomiting Disposition: HOME SELF-CARE Condition: Good Instructions (If sedation given, give patient instructions): Acute Nausea and Vomiting (ED), Abdominal Pain (ED) Is patient prescribed a controlled substance at d/c from ED?: No Referrals: None,Stated [Primary Care Provider] - 1-2 days Time of Disposition: 04:35
[2023-03-04 03:46] LABS: Basophils # (A) 0.1 k/uL (0-0.2); Basophils % (A) 1 %; Eosinophils # (A) 1.1 k/uL (0-0.7); Eosinophils % (A) 8 %; HCT 45.4 % (34.0-46.0); HGB 15.1 gm/dL (11.4-16.0); Lymphocytes # (A) 3.4 k/uL (1.0-4.8); Lymphocytes % (A) 24 %; MCH 29.8 pg (25.0-35.0); MCHC 33.3 g/dL (31.0-37.0); MCV 89.3 fL (80.0-100.0); Mean Platelet Volume 7.7; Monocytes # (A) 0.6 k/uL (0-1.0); Monocytes % (A) 4 %; Neutrophils # (A) 8.6 k/uL (1.3-7.7); Neutrophils % (A) 62 %; Platelet Count 317 k/uL (150-450); RBC 5.08 m/uL (3.80-5.40); RDW 13.1 % (11.5-15.5)
[2023-03-04 03:57] LABS: ALT 29 U/L (4-34); AST 23 U/L (14-36); African American GFR (CKD) >90 (>60 ml/min/1.73 sqM); Albumin 4.8 g/dL (3.5-5.0); Alkaline Phosphatase 106 U/L (38-126); Amylase 62 U/L (30-110); Anion Gap 14 mmol/L; Blood Urea Nitrogen 13 mg/dL (7-17); Calcium 10.1 mg/dL (8.4-10.2); Carbon Dioxide 21 mmol/L (22-30); Chloride 106 mmol/L (98-107); Glucose 110 mg/dL (74-99); Lipase 84 U/L (23-300); Non-African American GFR(CKD) >90 (>60 ml/min/1.73 sqM); Potassium 4.2 mmol/L (3.5-5.1); Sodium 141 mmol/L (137-145); Total Bilirubin 0.5 mg/dL (0.2-1.3); Total Protein 7.8 g/dL (6.3-8.2)
[2023-03-04 04:03] LABS: Appearance,Urine Clear (Clear); Bilirubin,Urine Negative (Negative); Blood,Urine Negative (Negative); Color,Urine Light Yellow; Glucose,Urine (UA) Negative (Negative); Ketones,Urine Negative (Negative); Leukocyte Esterase,Urine Negative (Negative); Nitrite,Urine Negative (Negative); Protein,Urine Negative (Negative); Specific Gravity,Urine 1.019 (1.001-1.035); Urobilinogen,Urine <2.0 mg/dL (<2.0)
[2023-03-04 04:19] LABS: INR 0.9 (<1.2); Partial Thromboplastin Time 24.7 sec (22.0-30.0); Prothrombin Time 10.3 sec (10.0-12.5)
[2023-03-04 05:05] VITALS: BP 104/57; PULSE 75; RESP 18
== END 2023-03-04 04:56 | disposition home or self-care (01) ==
LOC: EC 02:38
DX: R11.2 Nausea with vomiting, unspecified (principal); R10.10 Upper abdominal pain, unspecified; K21.9 Gastro-esophageal reflux disease without esophagitis; E07.9 Disorder of thyroid, unspecified; F41.9 Anxiety disorder, unspecified; F32.A Depression, unspecified; Z79.890 Hormone replacement therapy; Z79.899 Other long term (current) drug therapy; Z91.040 Latex allergy status
CPT/HCPCS: 36415; 80053; 81003; 81025; 82009; 82150; 83605; 83690; 85025; 85610; 85730; 96360; 99284

== ENCOUNTER → 2023-03-06 | Outpatient (CLI) | payer MEDICAID ==
--- NOTE | 2023-03-06 13:50 | US ---
EXAMINATION TYPE: US abdomen complete DATE OF EXAM: 03/06/2023 COMPARISON: CT 11/02/2018 CLINICAL INDICATION: Female, 32 years old with history of R10.13 EPIGASTRIC PAIN; Epigastric pain x f ew months worsening since sunday TECHNIQUE: Multiple sonographic images of the abdomen are obtained. FINDINGS: EXAM MEASUREMENTS: Liver Length: 16.5 cm Gallbladder Wall: 0.2 cm CBD: 0.2 cm Spleen: 12.4 cm Right Kidney: 11.7 x 4.6 x 4.9 cm Left Kidney: 11.5 x 5.0 x 4.7 cm AMMONIUM NITRATE NEUTRALIZER NOTES: Pancreas: wnl Liver: Lesion noted left inferior lobe,4.3 x 4.0 x 3.7 cm Gallbladder: wnl Evidence for sonographic Dillard's sign: No CBD: wnl Spleen: wnl Right Kidney: wnl Left Kidney: wnl Upper IVC: wnl Abd Aorta: wnl The intrahepatic portion of the IVC and proximal abdominal aorta are within normal limits. There is no evidence of cholelithiasis. Common bile duct is unremarkable. The visualized portions of the sanchez creas are homogenous. The spleen is unremarkable. Kidneys are symmetric and free of hydronephrosis. No renal lesions are seen. IMPRESSION: Left hepatic lobe mass. Contrast CT of the abdomen is advised.
== END | disposition home or self-care (01) ==
LOC: RADUSWWP 12:58
PROVIDERS: ATTEND Family Medicine
DX: R10.13 Epigastric pain (principal)
CPT/HCPCS: 76700

== ENCOUNTER → 2023-03-07 | Outpatient (CLI) | payer MEDICAID ==
--- NOTE | 2023-03-07 08:18 | CT ---
EXAMINATION TYPE: CT abdomen w con CT DLP: 1477.4 mGycm, Automated exposure control for dose reduction was used. DATE OF EXAM: 03/07/2023 7:53 AM COMPARISON: CT abdomen pelvis most recent from 11/02/2018, abdominal ultrasound 03/06/2023 . CLINICAL INDICATION:Female, 32 years old with history of R93.2; Epigastric pain, abn US of Lt lobe of liver. TECHNIQUE: Multiphase CT of the abdomen following the administration of 100 cc of Isovue 300 IV cont rast material and oral contrast. Coronal and sagittal reformats were performed. FINDINGS: LOWER CHEST: Unremarkable ABDOMEN LIVER: Segment 3 slightly hyperdense 3.3 x 3.8 cm lesion (series 4, image 29). This corresponds to re cent ultrasound finding. This demonstrates a Hounsfield unit of approximately 104. It demonstrates a Hounsfield unit of approximately 84 on delayed phase. Appears to been present on prior CT exam. No ev idence for cirrhosis. GALLBLADDER AND BILE DUCTS: Unremarkable. PANCREAS: Unremarkable. SPLEEN: Unremarkable. ADRENAL GLANDS: Unremarkable. KIDNEYS AND URETERS: No evidence of hydronephrosis or renal calculus. The ureters are unremarkable. STOMACH AND BOWEL: Stomach and duodenum are unremarkable . No focal bowel wall thickening. Enteric co ntrast reaches the proximal small bowel. No evidence of bowel obstruction. PERITONEUM: No evidence of pneumoperitoneum or free fluid. VASCULATURE: No evidence of aortic aneurysm. MUSCULOSKELETAL: No acute osseous abnormalities LYMPH NODES: No gross evidence for lymphadenopathy. SOFT TISSUE/ABDOMINAL WALL: Small fat filled umbilical hernia. IMPRESSION: Left hepatic lobe 3.8 cm lesion corresponding to recent ultrasound. Retrospectively appears to been p resent on prior CT exam in 2019 and likely benign. Etiologies include a hepatic adenoma versus less l ikely hemangioma. Further evaluation with MR abdomen (liver mass protocol) is recommended.
== END | disposition home or self-care (01) ==
LOC: RADCTMAIN 07:29
PROVIDERS: ATTEND Family Medicine
DX: K76.89 Other specified diseases of liver (principal)
CPT/HCPCS: 74160; Q9967

== ENCOUNTER → 2023-03-14 | Outpatient (CLI) | payer MEDICAID ==
--- NOTE | 2023-03-14 13:49 | MR ---
EXAMINATION TYPE: MR liver wo/w con DATE OF EXAM: 03/14/2023 12:51 PM CLINICAL INDICATION:Female, 32 years old with history of R93.2 ABNORMAL FINDINGS ON DX IMAGING OF [facility] ER AND BILIARY; PHH, Epigastric pain, abnormal CT COMPARISON: CT scan abdomen from 10/25/2018. TECHNIQUE: Multiplanar multi-sequence imaging was performed without contrast. Post contrast imaging was performed. Post IV contrast subtraction images were also submitted for review. IV Contrast: 10 cc Gadavist FINDINGS: LOWER CHEST: No gross irregularity. ABDOMEN Liver: No evidence for cirrhosis. Signal dropout on chemical shift of phase imaging . Left hepatic lo be segment 3 mass measuring 43 x 32 mm previously measuring 61 x 50 mm in 2019. Demonstrates subtle a rterial phase enhancement which persists on delayed imaging. Gallbladder and Bile ducts: No evidence for ductal dilation, or biliary stricture or evidence of chol edocholithiasis. The gallbladder is within normal limits. Pancreas: Variant anatomy to the main pancreatic ducts the dorsal duct next the main pancreatic duct near the pancreatic head neck junction in the ventral duct appears to also connect to the main pancre atic duct near the neck. The ventral and dorsal pancreatic ducts connect to the common bile duct.No d uctal dilation. No evidence for solid mass. Spleen: Normal for size. Adrenal glands: Unremarkable. Kidneys: No evidence for obstructive uropathy. No suspicious renal masses. Stomach and Bowel: No evidence for bowel wall thickening or evidence for obstruction.. Peritoneum: No evidence of pneumoperitoneum or free fluid. Vasculature: No aortic aneurysm. Musculoskeletal: The osseous structures appear intact. Lymph Nodes: No gross evidence for lymphadenopathy. Abdominal wall: Unremarkable. Reproductive: Endometrium appears to show a septate uterus series 301 image 23. Left ovarian high T2 signal cyst measuring up to 3.8 cm. IMPRESSION: 1. Left hepatic lobe lesion which appears decreased in size from 2019 and has benign enhancement naren racteristics. Findings favored benign etiology such as atypical FNA or atypical adenoma. 2. Variant pancreatic duct anatomy. However it is not the classical pancreatic divisum anatomy. The ventral and dorsal pancreatic ducts connect to the common bile duct. 3. Suspected septate uterus pathology to the uterus. 4. Left ovarian 3.8 cm cyst. 5. Hepatic steatosis.
== END | disposition home or self-care (01) ==
LOC: RADMRIMAIN 11:25
PROVIDERS: ATTEND Family Medicine
DX: K76.0 Fatty (change of) liver, not elsewhere classified (principal); N83.202 Unspecified ovarian cyst, left side; R93.2 Abnormal findings on diagnostic imaging of liver and biliary tract; R10.13 Epigastric pain
CPT/HCPCS: 74183; A9585

== ENCOUNTER → 2023-03-15 | Outpatient (CLI) | payer MEDICAID ==
--- NOTE | 2023-03-15 15:07 | NM ---
EXAMINATION TYPE: NM hepatobiliary w EF DATE OF EXAM: 03/15/2023 COMPARISON: NONE CLINICAL INDICATION: Female, 32 years old with history of EPIGASTRIC PAIN; TECHNIQUE: After the intravenous administration of 5.08 mCi Tc 99m Mebrofenin hepatobiliary scintigra phy is performed. Immediate images post injection. FINDINGS: There is satisfactory initial accumulation of tracer by the liver. The gallbladder is visualized wit hin 8 minutes. The small bowel activity is noted within 14 minutes. At one hour 8 ounces of oral en sure plus is given to mimic CCK and gallbladder ejection fraction is calculated at 70 %, in the alise l range. Therefore there is no scintigraphic evidence of cystic or common bile duct obstruction to s uggest acute cholecystitis or gallbladder dyskinesia. IMPRESSION: Exam is within normal limits.
== END | disposition home or self-care (01) ==
LOC: RADNMMAIN 12:39
PROVIDERS: ATTEND Family Medicine
DX: R10.13 Epigastric pain (principal)
CPT/HCPCS: 78226; A9537

== ENCOUNTER → 2023-08-15 | Outpatient (CLI) | payer MEDICAID ==
[2023-08-15 10:11] LABS: Basophils # (A) 0.1 k/uL (0-0.2); Basophils % (A) 1 %; Eosinophils # (A) 0.2 k/uL (0-0.7); Eosinophils % (A) 2 %; HCT 40.8 % (34.0-46.0); HGB 12.8 gm/dL (11.4-16.0); Lymphocytes # (A) 2.2 k/uL (1.0-4.8); Lymphocytes % (A) 22 %; MCH 29.1 pg (25.0-35.0); MCHC 31.5 g/dL (31.0-37.0); MCV 92.5 fL (80.0-100.0); Mean Platelet Volume 7.6; Monocytes # (A) 0.4 k/uL (0-1.0); Monocytes % (A) 4 %; Neutrophils # (A) 6.9 k/uL (1.3-7.7); Neutrophils % (A) 70 %; Platelet Count 267 k/uL (150-450); RBC 4.41 m/uL (3.80-5.40); RDW 13.2 % (11.5-15.5); WBC 9.9 k/uL (3.8-10.6)
[2023-08-15 16:00] LABS: BUN/Creat Ratio 18.17 Ratio (12.00-20.00); Blood Urea Nitrogen 10.9 mg/dL (9.0-27.0); Carbon Dioxide 22.4 mmol/L (21.6-31.8); Chloride 106 mmol/L (96-109); Glucose 163 mg/dL (70-110); Potassium 4.5 mmol/L (3.5-5.5); Sodium 139 mmol/L (135-145)
[2023-08-15 16:01] LABS: ALT 23 U/L (8-44); AST 17 U/L (13-35); Albumin 4.2 g/dL (3.8-4.9); Albumin/Globulin Ratio 1.75 Ratio (1.60-3.17); Alkaline Phosphatase 82 U/L (41-126); Calcium 8.9 mg/dL (8.7-10.3); Globulin 2.4 g/dL (1.6-3.3); T4, Free (Free Thyroxine) 1.13 ng/dL (0.80-1.80); Total Bilirubin 0.2 mg/dL (0.3-1.2); Total Protein 6.6 g/dL (6.2-8.2)
== END | disposition home or self-care (01) ==
LOC: LABWHC1 07:33
PROVIDERS: ATTEND Family Medicine
DX: E03.9 Hypothyroidism, unspecified (principal); F90.9 Attention-deficit hyperactivity disorder, unspecified type; R63.2 Polyphagia
CPT/HCPCS: 36415; 80053; 84439; 84443; 85025

== ENCOUNTER → 2023-10-30 | Day surgery (SDC) | payer MEDICAID ==
[~2023-10-30] MED LIST changes: +LACTATED RINGERS 1,000 ML IV SCH; +LIDOCAINE 1% INJ 10MG/ML (20 ML MDV) ONE; +PROPOFOL 10 MG/ML 20 ML VIAL IV ONE; -SODIUM CHLORIDE 0.9% 500 ML 500 ML in EMPTY BAG 1 BAG IV PRN
[2023-10-30 08:00] VITALS: TEMP 96.9
[2023-10-30] MEDS: IV FLUID CONTINUATION 1,000 ML IV ONE (08:07)
--- NOTE | 2023-10-30 08:50 | P.GSHP ---
History of Present Illness H&P Date: 10/30/23 Chief Complaint: Epigastric pain 33-year-old female here today for upper endoscopy. Patient last seen in August. Patient has had extensive workup. Seems to have symptoms fairly well-controlled while taking omeprazole and even Pepcid. Symptoms were aggravated when she started Ozempic. Past Medical History Past Medical History: GERD/Reflux, Thyroid Disorder Additional Past Medical History / Comment(s): gastritis, gestational diabetes, occasional right upper quadrant & epigastric pain History of Any Multi-Drug Resistant Organisms: None Reported Past Surgical History: No Surgical Hx Reported Additional Past Surgical History / Comment(s): WISDOM TEETH -EXTRACTIONS, D&C, EGD Past Anesthesia/Blood Transfusion Reactions: No Reported Reaction Smoking Status: Never smoker - Past Family History Mother Family Medical History: Deep Vein Thrombosis (DVT) Medications and Allergies Home Medications Medication Instructions Recorded Confirmed Type Levothyroxine Sodium 25 mcg PO QAM 02/13/18 10/25/23 History Famotidine [Pepcid] 40 mg PO DAILY 12/11/19 10/25/23 History Escitalopram [Lexapro] 20 mg PO DAILY 01/09/22 10/25/23 History Vitamin C/Biotin [Hair, Skin and 1 tab PO DAILY 10/25/23 10/25/23 History Nails Chew] Allergies Allergy/AdvReac Type Severity Reaction Status Date / Time latex Allergy Rash/Hives Verified 10/30/23 07:47 Surgical - Exam Vital Signs Temp Pulse Resp BP Pulse Ox 96.9 F L 62 18 129/62 97 10/30/23 07:58 10/30/23 07:58 10/30/23 07:58 10/30/23 07:58 10/30/23 07:58 Physical exam: General: Well-developed, well-nourished HEENT: Normocephalic, sclerae nonicteric Abdomen: Nontender, nondistended Extremities: No edema Neuro: Alert and oriented Assessment and Plan (1) GERD (gastroesophageal reflux disease) Narrative/Plan: Will proceed with EGD at this time. Current Visit: Yes Status: Acute Code(s): K21.9 - GASTRO-ESOPHAGEAL REFLUX DISEASE WITHOUT ESOPHAGITIS SNOMED Code(s): 422008640
--- NOTE | 2023-10-30 09:02 | P.PCN ---
Date of Procedure: 10/30/23 Procedure(s) Performed: Preoperative Dx: GERD, epigastric pain Postoperative Dx: Mild gastritis Procedure: EGD with Bx Anesthesia: Sedation Endoscopist: Dr. King Specimens: Antrum Endoscopic Procedure: The patient was on the endoscopy table in the left decubitus position. The Olympus gastroscope was inserted into the oropharynx and passed under direct visualization to the region of the third portion of the duodenum. From that point the scope was slowly withdrawn inspecting all surfaces carefully. There were no neoplastic inflammatory or polypoid lesions throughout the duodenum. The pylorus was widely patent. The stomach was carefully inspected. There was mild gastritis present. A biopsy of the antrum took place to rule out H. pylori. Retroflexion revealed a normal hiatus. The esophagus was then carefully examined. There were no neoplastic inflammatory or polypoid lesions throughout the visualized esophagus. The patient was then taken to the recovery room in stable condition per anesthesia guidelines. Recommendations: Continue antiacids. Patient now having some intermittent right upper quadrant pains. She has had an extensive imaging workup including CAT scan, ultrasound, HIDA scan, MRI. No obvious gallbladder abnormalities noted. If symptoms persist could consider repeating ultrasound at some point in the future. Await biopsy results.
[2023-10-30 09:06] VITALS: RESP 16
[2023-10-30 09:23] VITALS: BP 103/73; PULSE 64
== END ==
LOC: ORWHC2ENDO 07:21
PROVIDERS: ATTEND Surgery
DX: R10.13 Epigastric pain
CPT/HCPCS: 43239; 81025; 88305

== ENCOUNTER → 2024-02-25 | Outpatient (CLI) | payer MEDICAID ==
--- NOTE | 2024-02-25 08:10 | XR ---
EXAMINATION TYPE: XR foot complete LT DATE OF EXAM: 02/25/2024 CLINICAL HISTORY: Pain after twisting injury 5 days ago. TECHNIQUE: Frontal, lateral, and oblique images of the left foot are obtained. COMPARISON: None FINDINGS: There is no acute fracture/dislocation evident in the left foot. The joint spaces in the left foot appear within normal limits. Some flexion of the toes is seen. The overlying soft tissue a ppears unremarkable. IMPRESSION: There is no acute fracture or dislocation in the left foot. [facility], , 02/25/2024 8:08 AM
[2024-02-25 10:36] LABS: Basophils # (A) 0.03 X 10*3/uL (0.00-0.10); Basophils % (A) 0.4 %; Eosinophils # (A) 0.19 X 10*3/uL (0.04-0.35); Eosinophils % (A) 2.6 %; HCT 42.2 % (37.2-46.3); HGB 13.4 g/dL (12.0-15.0); Lymphocytes # (A) 2.34 X 10*3/uL (0.90-5.00); Lymphocytes % (A) 31.5 %; MCH 28.6 pg (27.0-32.0); MCHC 31.8 g/dL (32.0-37.0); Mean Platelet Volume 10.4 FL (9.5-12.2); Monocytes # (A) 0.36 X 10*3/uL (0.20-1.00); Monocytes % (A) 4.8 %; NRBC Per 100 WBC 0 X 10*3/uL (0.00-0.01); Neutrophils # (A) 4.49 X 10*3/uL (1.80-7.70); Neutrophils % (A) 60.4 %; Platelet Count 327 X 10*3/uL (140-440); RBC 4.69 X 10*6/uL (4.10-5.20); RDW 12.4 % (11.5-14.5); WBC 7.43 X 10*3/uL (4.50-10.00)
[2024-02-25 15:15] LABS: Chol/HDL Ratio 4.05 Ratio; VLDL Calculation 13.92 mg/dL (5.00-40.00)
[2024-02-25 15:16] LABS: ALT 43 U/L (8-44); AST 29 U/L (13-35); Albumin 4.4 g/dL (3.8-4.9); Albumin/Globulin Ratio 1.69 Ratio (1.60-3.17); Alkaline Phosphatase 81 U/L (41-126); BUN/Creat Ratio 14.86 Ratio (12.00-20.00); Blood Urea Nitrogen 10.4 mg/dL (9.0-27.0); Calcium 9.6 mg/dL (8.7-10.3); Carbon Dioxide 26.7 mmol/L (21.6-31.8); Chloride 104 mmol/L (96-109); Globulin 2.6 g/dL (1.6-3.3); Glucose 134 mg/dL (70-110); LDL Cholesterol,Calculated 97.6 mg/dL (0.0-131.0); Potassium 4.4 mmol/L (3.5-5.5); Sodium 140 mmol/L (135-145); T4, Free (Free Thyroxine) 1.12 ng/dL (0.80-1.80); Total Bilirubin 0.2 mg/dL (0.3-1.2)
== END | disposition home or self-care (01) ==
LOC: RADXRMAIN 07:40
PROVIDERS: ATTEND Family Medicine
DX: E78.2 Mixed hyperlipidemia (principal); M79.672 Pain in left foot; R63.2 Polyphagia; E03.9 Hypothyroidism, unspecified; Z00.01 Encounter for general adult medical examination with abnormal findings; R73.9 Hyperglycemia, unspecified; E78.5 Hyperlipidemia, unspecified
CPT/HCPCS: 80053; 80061; 83036; 84439; 84443; 84480; 85025

== ENCOUNTER → 2024-05-19 | Outpatient (CLI) | payer MEDICAID ==
[2024-05-19 10:15] LABS: Basophils # (A) 0.04 X 10*3/uL (0.00-0.10); Basophils % (A) 0.5 %; Eosinophils # (A) 0.16 X 10*3/uL (0.04-0.35); HCT 42.9 % (37.2-46.3); HGB 13.8 g/dL (12.0-15.0); Lymphocytes # (A) 1.73 X 10*3/uL (0.90-5.00); Lymphocytes % (A) 21.9 %; MCH 28.6 pg (27.0-32.0); MCHC 32.2 g/dL (32.0-37.0); Mean Platelet Volume 10.5 FL (9.5-12.2); Monocytes % (A) 5.1 %; NRBC Per 100 WBC 0 X 10*3/uL (0.00-0.01); Neutrophils # (A) 5.54 X 10*3/uL (1.80-7.70); Neutrophils % (A) 70.2 %; Platelet Count 339 X 10*3/uL (140-440); RBC 4.82 X 10*6/uL (4.10-5.20); RDW 12.7 % (11.5-14.5); WBC 7.89 X 10*3/uL (4.50-10.00)
[2024-05-19 11:06] LABS: ALT 26 U/L (8-44); AST 16 U/L (13-35); Albumin 4.5 g/dL (3.8-4.9); Albumin/Globulin Ratio 1.88 Ratio (1.60-3.17); Alkaline Phosphatase 91 U/L (41-126); BUN/Creat Ratio 10.88 Ratio (12.00-20.00); Blood Urea Nitrogen 8.7 mg/dL (9.0-27.0); Calcium 9.5 mg/dL (8.7-10.3); Carbon Dioxide 23.7 mmol/L (21.6-31.8); Chloride 104 mmol/L (96-109); Chol/HDL Ratio 3.91 Ratio; Globulin 2.4 g/dL (1.6-3.3); Glucose 82 mg/dL (70-110); LDL Cholesterol,Calculated 105.3 mg/dL (0.0-131.0); Potassium 4.3 mmol/L (3.5-5.5); Sodium 139 mmol/L (135-145); T4, Free (Free Thyroxine) 1.37 ng/dL (0.80-1.80); Total Bilirubin 0.4 mg/dL (0.3-1.2); Total Protein 6.9 g/dL (6.2-8.2); VLDL Calculation 14.48 mg/dL (5.00-40.00)
== END | disposition home or self-care (01) ==
LOC: LABWHC1 07:33
PROVIDERS: ATTEND Family Medicine
DX: E11.65 Type 2 diabetes mellitus with hyperglycemia (principal); E03.9 Hypothyroidism, unspecified
CPT/HCPCS: 36415; 80053; 80061; 82043; 82570; 83036; 84439; 84443; 84681; 85025; 86337